=== PATIENT | male | born 1960 | race Caucasian/White ===

== ENCOUNTER 2017-10-11 14:40 | Inpatient (IN) ==
--- NOTE | 2017-10-11 14:55 | Emergency Department Note ---
Disposition Clinical Impression: GUTIERREZ (acute kidney injury) Diabetes Qualifiers: Diabetes mellitus type: type 2 Diabetes mellitus prison insulin use: without terminal operations manager use Diabetes mellitus complication status: with kidney complications Diabetes mellitus complication detail: with nephropathy Qualified Code(s): E11.21 - Type 2 diabetes mellitus with diabetic nephropathy Disposition: Admitted As Inpatient Condition: Fair Referrals: NONE,PCP [Non-Partnered Physician] - Forms: ED Satisfaction Letter General Adult HPI - General Chief complaint: ED Recheck/Abnormal Lab/Rx Stated complaint: "sent by pcp for kidney failure" Time Seen by Provider: 10/11/17 14:45 Source: patient Limitations: no limitations Nursing Notes Reviewed: Yes Vital Signs Reviewed: Yes - History of Present Illness HPI Narrative: Chief complaint is increased kidney function. History this is a 57-year-old gentleman has a history of diabetes. He saw his primary care physician on Saturday for routine blood work to check her sugars and he knows that his kidney function was increased. They repeated that blood work today and it was still increase so they time to come to the ER for a possible admission. He said he has not done been feeling as good as he is he feels that he has no chest pain or shortness of breath no nausea or vomiting savings is urinating like he usually does. He is on lisinopril; he denies taking any NSAIDs. he also takes insulin but no other medications he has never had any kidney issues in the past except for kidney stones. Pain Scale: 2 - Related Data Home Medications Medication Instructions Recorded Confirmed Cyclobenzaprine HCl 10 mg PO TID PRN 01/01/16 10/11/17 Lisinopril [Zestril] 40 mg PO DAILY 01/01/16 10/11/17 Aspirin [Lo-Dose Aspirin EC] 81 mg PO DAILY 10/11/17 10/11/17 Gabapentin [Neurontin] 300 mg PO TID 10/11/17 10/11/17 Insulin Glargine,Hum.rec.anlog 25 unit SQ QPM 10/11/17 10/11/17 [Basaglar Kwikpen U-100] Metformin HCl 1,000 mg PO BID 10/11/17 10/11/17 Allergies Allergy/AdvReac Type Severity Reaction Status Date / Time No Known Allergies Allergy Verified 01/01/16 17:27 Review of Systems: Positive for feeling tired other review systems are negative All systems ED: reviewed and negative except as stated. Past Medical History - Past Medical History Medical history: Reports: cancer, diabetes, hyperlipidemia, hypertension, kidney stones, renal disease Surgical history: Reports: orthopedic, other Psychiatric history: Reports: no psych history - Social History Smoking Status: Never smoker Smokeless Tobacco Status: No Alcohol use: Reports: none Drug use: Reports: none Physical Exam Temperature is 98.2, pulse is 96, respirations 18, BP 147/87 pulse oximeter is 95%, he was 134.6 kg. He is alert cooperative in no acute distress HEENT is normocephalic PERRL airways midline no drooling or stridor beaks membranes are moist no scleral icterus Cardiovascular is regular rate and rhythm without rubs or JVD lungs are clear to auscultation bilaterally with good aeration Abdomen soft nonsurgical good bowel sounds no masses, no CVA tenderness Extremities are present 4 good distal pulses Refill is brisk no pitting edema no calf tenderness Dermatologic skin is warm and dry no rash petechiae or jaundice neurologic: Alert to person place and time GCS is 15 moves all extremities no focal deficit. - General Limitations: no limitations General appearance: alert, in no apparent distress, appears intoxicated Course Vital Signs Temperature 98.2 F 10/11/17 14:42 Pulse Rate 98 10/11/17 14:42 Respiratory Rate 18 10/11/17 14:42 Blood Pressure 147/87 10/11/17 14:42 O2 Sat by Pulse Oximetry 95 10/11/17 14:42 Temperature 98.2 F 10/11/17 14:47 Pulse Rate 84 10/11/17 15:31 Respiratory Rate 18 10/11/17 15:31 Blood Pressure 135/87 10/11/17 15:31 O2 Sat by Pulse Oximetry 94 10/11/17 14:54 Oxygen Delivery Oxygen Delivery Room Air Medical Decision Making - [facility] Narrative Medical decision making narrative: 1300: Labs reviewed from today and his creatinine has increased. We will bring him into the hospital speak with the hospitalist. I spoke with Dr. Gerber who is on for nephrology consults. He has to get a ultrasound of the kidneys and consult him. Patient's in agreement with this plan. Started him on IV fluids here. 1305 hrs.: It appears patient did not have a CBC with his labs on Saturday. Waiting on EKG at this time. He is in agreement with this plan. 1312 hrs. patient had an EKG performed shows a sinus rhythm, rate is 87, QRS is 104, QTC is 363, does have a little bit of left axis deviation. This EKG he had 2 years ago and shows no changes. Set for rate. 1618 hrs.: Patient's CBC is unremarkable. His potassium is elevated 6.4 but is not having symptoms or effects from that this time. Spoke with the hospitalist , he is in agreement with admission plan. water filtration technician is taking him for bilateral kidney ultrasounds requested by nephrology and nephrology will consult. Impression is acute kidney injury uncertain etiology and diabetes. Agreement with the admission - Lab Data Result diagrams: 10/11/17 15:40 Lab Results 10/11/17 Range/Units 15:40 WBC 11.8 H (4.3-11.1) K/mcL RBC 4.23 (4.19-5.50) M/mcL Hgb 12.2 L (12.9-16.9) g/dL Hct 36.0 L (37.5-50.1) % MCV 85.1 (83.0-100.0) fL MCH 28.8 (28.0-33.3) pg MCHC 33.9 (31.6-35.5) g/dL RDW 13.2 (11.5-14.5) % Plt Count 367 (140-400) K/mcL MPV 9.5 (9.4-12.4) fL Immature Gran % 0.7 (0-4) % Seg Neutrophils % 62.3 % Lymphocytes % 25.8 % Monocytes % 8.4 % Eosinophils % 2.4 % Basophils % 0.4 % Neutrophils # 7.4 (1.6-8.9) K/mcL Lymphocytes # 3.1 (0.6-4.6) K/mcL Monocytes # 1.0 (0.0-1.3) K/mcL Eosinophils # 0.3 (0.0-0.6) K/mcL Basophils # 0.1 (0.0-0.2) K/mcL
[2017-10-11] MEDS: 0.9 % Sodium Chloride 1,000 ML IVC SCH ×2 (14:59→18:30)
[2017-10-11 15:53] LABS: Basophils # 0.1 K/mcL (0.0-0.2); Basophils % 0.4 %; Eosinophils # 0.3 K/mcL (0.0-0.6); Eosinophils % 2.4 %; Hemoglobin 12.2 g/dL (12.9-16.9); Immature Granulocytes % 0.7 % (0-4); Lymphocytes # 3.1 K/mcL (0.6-4.6); Lymphocytes % 25.8 %; Mean Corpuscular HGB Conc 33.9 g/dL (31.6-35.5); Mean Corpuscular Hemoglobin 28.8 pg (28.0-33.3); Mean Corpuscular Volume 85.1 fL (83.0-100.0); Mean Platelet Volume 9.5 fL (9.4-12.4); Monocytes % 8.4 %; Neutrophils # 7.4 K/mcL (1.6-8.9); Platelet Count 367 K/mcL (140-400); Red Blood Count 4.23 M/mcL (4.19-5.50); Red Cell Distribution Width 13.2 % (11.5-14.5); Segmented Neutrophils % 62.3 %
[2017-10-11] MEDS ORDERED: *HR* Dextrose 50 % in Water (Syg) 50 ML SYRINGE IVP ONE (17:10)
[2017-10-11] MEDS ORDERED: Calcium Chloride 1,000 MG in 0.9 % Sodium Chloride 100 ML IVPB ONE (17:10)
[2017-10-11] MEDS ORDERED: Insulin Human Regular 10 UNIT in 0.9 % Sodium Chloride 10 ML IV ONE (17:10)
[2017-10-11] MEDS ORDERED: Naloxone 0.4 MG/ML INJ IVP PRN (17:11)
[2017-10-11] MEDS ORDERED: D5% in Water 1,000 ML IVC PRN (17:14)
[2017-10-11] MEDS ORDERED: *HR* Dextrose 50 % in Water (Syg) 50 ML SYRINGE IVP PRN (17:14)
[2017-10-11] MEDS ORDERED: Dextrose Gel 15 GM/37.5 ML TUBE PO PRN ×2 (17:14)
--- NOTE | 2017-10-11 17:23 | Internal Med History&Physical ---
Date of Encounter: 10/11/17 Time of Encounter: 17:20 Internal Medicine - H&P: HPI Chief complaint: acute hyperkalemia and GUTIERREZ History of present illness: Mr. 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 He denies being symptomatic or feeling unwell. Denies overt weight gain or any new medicines. The only changes in his medicine was to increase his Lantus from 18-25 units at night. He denies a history of kidney disease. Has a remote history of kidney stone approximately 10 years ago. EKG personally reviewed with rate of 87, normal sinus rhythm HISTORY: ORDERING SYSTEM PROVIDED HISTORY: GUTIERREZ request from Nephro FINDINGS: Kidneys: The right kidney measures 12.13 x 6.67 x 6.11 cm. The left kidney measures 13.31 x 5.19 x 7.72 cm. Both kidneys demonstrate mild hydronephrosis an papillary calcifications consistent with multiple nephroliths, largest of 4 mm. A superior pole cyst left kidney 2.0 x 1.86 x 2.22 cm is noted. No cortical thinning is noted. US/US retroperitoneal limited IMPRESSION: Mild bilateral hydronephrosis and nonobstructing nephroliths. Superior pole cyst left kidney. Past Med Surg Social Fam HX - Past Medical History Medical history: cancer, diabetes, hyperlipidemia, hypertension, kidney stones, renal disease Additional medical history: skin CA Psychiatric history: no psych history - Past Surgical History Surgical History: orthopedic, other Additional surgical history: BACK SURGERY, Skin CA removed 09/30/17 - Social History Smoking Status: Never smoker Smokeless Tobacco Status: No Alcohol use: none Drug use: none - Family History Father Adopted: No Hx Family Cardiac Disorders: Yes (Myocardial infarction in his 50s) Hx Family Neurologic Disorders: Yes (Cerebrovascular accident) Mother Adopted: No Living Status: Still Living Hx Family Cardiac Disorders: Yes (CAD/STENTS) Hx Family Respiratory Disorders: Yes (GRANDFATHER) Hx Family Cancer: Yes Hx Family GI Disorders: No Hx Family Endocrine Disorder: Yes Hx Family Neurologic Disorders: Yes (Cerebrovascular accident) Internal Medicine - H&P: Meds Cyclobenzaprine HCl 10 mg PO TID PRN 01/01/16 [History] Lisinopril [Zestril] 40 mg PO DAILY 01/01/16 [History] Aspirin [Lo-Dose Aspirin EC] 81 mg PO DAILY 10/11/17 [History] Gabapentin [Neurontin] 300 mg PO TID 10/11/17 [History] Insulin Glargine,Hum.rec.anlog [Basaglar Kwikpen U-100] 25 unit SQ QPM 10/11/17 [History] Metformin HCl 1,000 mg PO BID 10/11/17 [History] 3 Allergy/AdvReac Type Severity Reaction Status Date / Time No Known Allergies Allergy Verified 01/01/16 17:27 All Systems PM: A 10-system review of systems was performed and is negative for pertinent findings except as documented above in the HPI. Review of systems: ROS 14 point review of systems reviewed as best as possible given presentation. Pertinent positive or negative as per HPI or otherwise reviewed as negative - Constitutional Vitals: Temp Pulse Resp BP Pulse Ox 98.2 F 84 18 135/87 94 10/11/17 14:47 10/11/17 15:31 10/11/17 15:31 10/11/17 15:31 10/11/17 14:54 Exam: General - AAO x 3 Psych - Appropriate affect/speech. No agitation Eyes - SARAH. Eye lids intact. No scleral icterus Neuro - No gross peripheral or central neuro deficits on inspection Heart - Sinus. RRR. S1 and S2 present. No added HS/murmurs appreciated. No elevated JVD appreciated. Lung - Adequate air entry b/l, No crackles/wheezes appreciated GI - Soft, non-tender. No hepatosplenomegaly/ascites. BS+ - No CVA/suprapubic tenderness or palpable bladder distension Skin - Intact. No rash/petechiae/ecchymosis. Trace b/l LE edema Internal Med - H&P Results - Labs CBC & Chem 7: 10/11/17 15:40 - Assessment and plan (1) Hyperkalemia Current Visit: Yes Status: Acute Assessment and plan: hyperK protocol recheck K later at 2000 hrs hold ACEI, metformin home med tele (2) GUTIERREZ (acute kidney injury) Current Visit: Yes Status: Acute Assessment and plan: trial of IVF, trend Cr Renal consult - Dr Montes informed by the ED 24 hour urine - if unable to collect in bottle, will need jack placement - communication order placed urine studies pending renal US (3) Diabetes Current Visit: Yes Status: Chronic Assessment and plan: continue lantus add ISS Qualifiers: Diabetes mellitus type: type 2 Diabetes mellitus senior living insulin use: without senior living use Diabetes mellitus complication status: with kidney complications Diabetes mellitus complication detail: with nephropathy Qualified Code(s): E11.21 - Type 2 diabetes mellitus with diabetic nephropathy (4) Hyperlipidemia Current Visit: No Status: Acute Assessment and plan: continue statin Qualifiers: Hyperlipidemia type: other hyperlipidemia Qualified Code(s): E78.4 - Other hyperlipidemia (5) Hypertension Current Visit: No Status: Chronic Assessment and plan: hold ACEI Qualifiers: Hypertension type: unspecified secondary hypertension Qualified Code(s): I15.9 - Secondary hypertension, unspecified; I15 - Secondary hypertension - Time Spent With Patient Total time spent is greater than 50% in coordination of care (as documented) at patient's floor/unit and/or counseling patient:
[2017-10-11] MEDS: *HR* Heparin 5,000 UNIT/ML VIAL SQ SCH (18:34)
[2017-10-11 20:23] LABS: Calcium 10.8 mg/dL (8.6-10.3); Potassium 5.3 mEq/L (3.5-5.1)
[2017-10-11 20:56] LABS: Bilirubin,Urine Negative (Negative); Blood,Urine Trace (Negative); Clarity,Urine Clear (Clear); Color,Urine Yellow (Yellow); Glucose,Urine (UA) Normal (Normal); Ketones,Urine Negative (Negative); Leukocyte Esterase,Urine Negative (Negative); Nitrite,Urine Negative (Negative); Protein,Urine Negative (Neg-Trace); Specific Gravity,Urine 1.016 (1.010-1.025); Urobilinogen,Urine Normal (Normal)
[2017-10-11 20:57] LABS: Bacteria,Urine None Seen per hpf (None-Few); Hyaline Casts,Urine None Seen per lpf (None-Few); Squamous Epithelial Cell,Urine None Seen per lpf (None-Few); WBC,Urine 0-3 per hpf (0-3)
[2017-10-11 21:23] LABS: Protein/Creatinine Ratio,Urine 0.17 mg/mg (0.00-0.20); Sodium, Urine 102.6 mEq/L
[2017-10-11] MEDS: Insulin DETEMIR 100 UNIT/ML X5UNITS SQ SCH (22:06)
[2017-10-11] MEDS: Gabapentin 300 MG CAPSULE PO SCH (22:06)
[2017-10-11] MEDS: Insulin LISPRO 300 UNITS/3 ML VIAL SQ SCH (22:09)
[2017-10-12] MEDS: *HR* Heparin 5,000 UNIT/ML VIAL SQ SCH ×2 (06:36→17:03)
[2017-10-12 07:21] LABS: Calcium 9.8 mg/dL (8.6-10.3); Potassium 5.7 mEq/L (3.5-5.1)
[2017-10-12] MEDS: Gabapentin 300 MG CAPSULE PO SCH ×3 (08:29→20:28)
[2017-10-12] MEDS: Aspirin Enteric Coated 81 MG Tablet PO SCH (08:29)
[2017-10-12] MEDS: Insulin LISPRO 300 UNITS/3 ML VIAL SQ SCH ×4 (08:29→20:31)
[2017-10-12] MEDS: 0.9 % Sodium Chloride 1,000 ML IVC SCH ×3 (08:39→20:54)
--- NOTE | 2017-10-12 09:44 | Nephrology Consult Note ---
Date of Encounter: 10/12/17 Time of Encounter: 09:25 Assessment and Plan (1) GUTIERREZ (acute kidney injury) Current Visit: Yes Status: Acute GUTIERREZ most likely in setting of decreased oral intake with unclear etiology. May be related to recent stone event a month ago in setting of bilateral hydronephrosis on Renal US that may be resolving though creatinine should have been improving. Hyperkalemia related to GUTIERREZ and Lisinopril. Continue IV fluids. Will start renal workup. Avoid nephrotoxins. Accurate I&O's. Will continue to monitor. History of Present Illness - Reason for Consult Acute Kidney Injury - History of Present Illness Mr. Cavanaugh is a 57 year old male who presented to ER from PCP for abnormal labs of elevated creatinine. Other PMH-cancer, diabetes, hyperlipidemia, hypertension, kidney stones, orthopedic. Mr. Cavanaugh states has not been feeling well in general for past two weeks following an excision of malignant lesion right ear with skin graft from right chest. He attributed his not feeling well to this. He states lab work done was for regular following of diabetes and it was noted "kidney numbers" elevated, labs were repeated and were worse and sent to ER. Initial creat 2.79, repeat 2.85. ER creat 2.69 and 2.53 today following IV fluids. Initial K 6.4, on Lisinopril which was stopped, given Kaexylate, repeat K 5.3. Today K 5.7 and Kaexylate ordered. Urine trace blood, negative protein, no leuks. Prior labs indicate renal fct normal in 2016 up to 2016 with no further labs between until current. Mr. Cavanaugh admits nausea for two weeks, no emesis. Decreased appetite and fluid intake. He denies diarrhea. Denies NSAID use. Diabetes for 20 years under good control. Denies diabetic retinopathy. Hypertension as teen but not started on medication until around age 28 and has been under good control since. He denies proteinuria or hematuria. He admits multiple [facility] renal stone events, last event one month ago and passed 2-3 stones. He states he no longer seeks medical attention for stones because he knows what it is. Stone composition uric acid. States was on medication, but cannot remember what and has not taken in awhile. He denies hx of UTI's. He states empties bladder without difficulty and voids 1-2 times during night. He denies swelling, shortness of breath or chest pain. Renal US demonstrates bilateral mild hydronephrosis, bilateral nonobstructing nephroliths. Hydronephrosis may be related to recent stone event of one month ago as mentioned above. 0.9 NS at 125cc/hr. No documented urine output, though patient states voiding well. Past Med Surg Social Fam HX - Past Medical History Medical history: cancer, diabetes, hyperlipidemia, hypertension, kidney stones, renal disease Additional medical history: skin CA Psychiatric history: no psych history - Past Surgical History Surgical History: orthopedic, other Additional surgical history: BACK SURGERY, Skin CA removed 09/30/17 - Social History Smoking Status: Never smoker Smokeless Tobacco Status: No Alcohol use: none Drug use: none - Family History Father Adopted: No Hx Family Cardiac Disorders: Yes (Myocardial infarction in his 50s) Hx Family Neurologic Disorders: Yes (Cerebrovascular accident) Mother Adopted: No Living Status: Still Living Hx Family Cardiac Disorders: Yes (CAD/STENTS) Hx Family Respiratory Disorders: Yes (GRANDFATHER) Hx Family Cancer: Yes Hx Family GI Disorders: No Hx Family Endocrine Disorder: Yes Hx Family Neurologic Disorders: Yes (Cerebrovascular accident) Medications and Allergies Cyclobenzaprine HCl 10 mg PO TID PRN 01/01/16 [History] Lisinopril [Zestril] 40 mg PO DAILY 01/01/16 [History] Aspirin [Lo-Dose Aspirin EC] 81 mg PO DAILY 10/11/17 [History] Gabapentin [Neurontin] 300 mg PO TID 10/11/17 [History] Insulin Glargine,Hum.rec.anlog [Basaglar Kwikpen U-100] 25 unit SQ QPM 10/11/17 [History] Metformin HCl 1,000 mg PO BID 10/11/17 [History] 3 Allergy/AdvReac Type Severity Reaction Status Date / Time No Known Allergies Allergy Verified 01/01/16 17:27 Review of Systems All Systems: reviewed and no additional remarkable complaints except as stated Exam - Vital Signs Vital signs: Initial Vital Signs Temp Pulse Resp BP Pulse Ox 98.2 F 98 18 147/87 95 10/11/17 14:42 10/11/17 14:42 10/11/17 14:42 10/11/17 14:42 10/11/17 14:42 Vital Signs - Last 8 Hours Temp Pulse Resp BP Pulse Ox 10/12/17 08:41 94 10/12/17 07:16 97.8 F 74 17 121/76 94 10/12/17 03:32 98.1 F 79 17 111/61 95 Intake and Output 10/11/17 10/12/17 10/12/17 23:59 07:59 15:59 Intake Total 1000 / 1000 480 / 480 Output Total 0 / 0 Balance 1000 / 1000 480 / 480 Intake: IV Fluids 1000 / 1000 0.9 % Sodium Chloride 1,000 ML 1000 / 1000 @ 125 mls/hr IVC .Q8H [facility] Rx#: [id number] Oral 480 / 480 Output: Urine 0 / 0 Other: Meal Breakfast Percent of Meal Consumed 100% Weight 294.835 kg 135.2 kg Blood Glucose* 213 160 Patient Weight 10/12/17 23:59 Weight 135.2 kg - General Appearance General appearance: well-developed, well-nourished, appears started age, obese EENT: mucous membranes moist Neck: no JVD Respiratory: clear Cardiology: no edema, regular rate, regular rhythm Gastrointestinal: normoactive bowel sounds, no tenderness Integumentary: warm and dry Neurologic: alert and oriented x3 Results - Lab Results 10/11/17 15:40 10/12/17 06:21 Most recent lab results Calcium 9.8 mg/dL (8.6-10.3) 10/12/17 06:21 Urine Creatinine 72 mg/dL 10/11/17 20:14 Urine Sodium 102.6 mEq/L 10/11/17 20:14 Urine Total Protein 12 mg/dL (1-14) 10/11/17 20:14 Consult Discharge Plan - Plan Referrals: Nilam Del Cid, CASE PLANNER [Primary Care Provider] - (web request sent on 10/12/17)
--- NOTE | 2017-10-12 10:41 | Urology - Consult Note ---
Date of Encounter: 10/12/17 Time of Encounter: 10:39 - Assessment and Plan (1) Hydronephrosis Current Visit: Yes Status: Acute Assessment and plan: 57-year-old male with possible hydronephrosis. He seems to be urinating well. He denies concern for urinary retention. A CT scans pending. We will see if he has evidence of BPH or obstructing ureteral stones. I will return once the results have come back. Qualifiers: Hydronephrosis type: unspecified Qualified Code(s): N13.30 - Unspecified hydronephrosis (2) Nephrolithiasis Current Visit: Yes Status: Acute Assessment and plan: We discussed his nephrolithiasis. Should he have concern for an obstructing ureteral stone, then we may need to proceed with stent placement or possible ureteroscopic stone extraction. Once the CT returns to provide him more information regarding the plan. Urology CN:DARREN Consult date: 10/12/17 Reason for consult Urology: Other (Nephrolithiasis) Requesting physician: Maciel Montes History of present illness: 57-year-old man was admitted for worsening renal function. He has a history of nephrolithiasis and reports that he has had uric acid stones. He passed a stone fragments 1-2 times per year. He denies any recent flank pain. He says he is voiding well. He had a renal ultrasound which showed bilateral hydronephrosis. A CT scan is pending. He had a CT of his chest in December 2015. A small portion of the upper pole the left kidney was obtained. There was evidence of nephrolithiasis there. Past Med Surg Social Fam HX - Past Medical History Medical history: cancer, diabetes, hyperlipidemia, hypertension, kidney stones, renal disease Additional medical history: skin CA Psychiatric history: no psych history - Past Surgical History Surgical History: orthopedic, other Additional surgical history: BACK SURGERY, Skin CA removed 09/30/17 - Social History Smoking Status: Never smoker Smokeless Tobacco Status: No Alcohol use: none Drug use: none - Family History Father Adopted: No Hx Family Cardiac Disorders: Yes (Myocardial infarction in his 50s) Hx Family Neurologic Disorders: Yes (Cerebrovascular accident) Mother Adopted: No Living Status: Still Living Hx Family Cardiac Disorders: Yes (CAD/STENTS) Hx Family Respiratory Disorders: Yes (GRANDFATHER) Hx Family Cancer: Yes Hx Family GI Disorders: No Hx Family Endocrine Disorder: Yes Hx Family Neurologic Disorders: Yes (Cerebrovascular accident) Medications and Allergies Cyclobenzaprine HCl 10 mg PO TID PRN 01/01/16 [History] Lisinopril [Zestril] 40 mg PO DAILY 01/01/16 [History] Aspirin [Lo-Dose Aspirin EC] 81 mg PO DAILY 10/11/17 [History] Gabapentin [Neurontin] 300 mg PO TID 10/11/17 [History] Insulin Glargine,Hum.rec.anlog [Basaglar Kwikpen U-100] 25 unit SQ QPM 10/11/17 [History] Metformin HCl 1,000 mg PO BID 10/11/17 [History] 3 Allergy/AdvReac Type Severity Reaction Status Date / Time No Known Allergies Allergy Verified 01/01/16 17:27 Review of Systems - Constitutional no chills, no fever(s) - EENT Nose, mouth and throat: no dizziness - Cardiovascular no chest pain - Respiratory no dyspnea - Gastrointestinal no nausea, no vomiting - Genitourinary no flank pain, no hematuria - Musculoskeletal no back pain - Integumentary no erythema, no rash - Neurological no weakness - Psychiatric no suicidal ideation - Hematologic/Lymphatic no easy bleeding - Allergic/Immunologic no wheezing Exam Initial Vital Signs Temp Pulse Resp BP Pulse Ox 98.2 F 98 18 147/87 95 10/11/17 14:42 10/11/17 14:42 10/11/17 14:42 10/11/17 14:42 10/11/17 14:42 - General physical appearance Present: well developed, well nourished, no distress - Eyes Absent: icteric - ENT Present: normal nares - Neck Present: trachea midline - Respiratory Present: normal respiratory effort - Cardiovascular Cardiovascular exam IM: RRR - Abdomen Abdomen: Present: soft - Integumentary Present: no rash - Neurologic Present: normal coordination - Musculoskeletal Present: normal gait Urology Results - Labs 10/11/17 15:40 10/12/17 06:21 Abnormal lab results WBC 11.8 K/mcL (4.3-11.1) H 10/11/17 15:40 Hgb 12.2 g/dL (12.9-16.9) L 10/11/17 15:40 Hct 36.0 % (37.5-50.1) L 10/11/17 15:40 Potassium 5.7 mEq/L (3.5-5.1) H 10/12/17 06:21 Carbon Dioxide 19 mEq/L (23-29) L 10/12/17 06:21 BUN 53 mg/dL (6-20) H 10/12/17 06:21 Creatinine 2.53 mg/dL (0.70-1.30) H 10/12/17 06:21 Est GFR ( Amer) 32 (> 60) L 10/12/17 06:21 Est GFR (Non-Af Amer) 26 (> 60) L 10/12/17 06:21 Glucose 154 mg/dL (70-105) H 10/12/17 06:21 Calculated Osmolality 301 (280-300) H 10/12/17 06:21 Urine Blood Trace (Negative) H 10/11/17 20:14 Urine Microscopic RBC 3-5 per hpf (0-3) H 10/11/17 20:14 Diabetes panel 10/11/17 10/12/17 Range/Units 19:48 06:21 Sodium 137 137 (136-145) mEq/L Potassium 5.3 H 5.7 H (3.5-5.1) mEq/L Chloride 105 107 (98-107) mEq/L Carbon Dioxide 19 L 19 L (23-29) mEq/L BUN 58 H 53 H (6-20) mg/dL Creatinine 2.69 H 2.53 H (0.70-1.30) mg/dL Glucose 192 H 154 H (70-105) mg/dL Calcium 10.8 H 9.8 (8.6-10.3) mg/dL Calcium panel 10/11/17 10/12/17 Range/Units 19:48 06:21 Calcium 10.8 H 9.8 (8.6-10.3) mg/dL Pituitary panel 10/11/17 10/12/17 Range/Units 19:48 06:21 Sodium 137 137 (136-145) mEq/L Potassium 5.3 H 5.7 H (3.5-5.1) mEq/L Chloride 105 107 (98-107) mEq/L Carbon Dioxide 19 L 19 L (23-29) mEq/L BUN 58 H 53 H (6-20) mg/dL Creatinine 2.69 H 2.53 H (0.70-1.30) mg/dL Glucose 192 H 154 H (70-105) mg/dL Calcium 10.8 H 9.8 (8.6-10.3) mg/dL Adrenal panel 10/11/17 10/12/17 Range/Units 19:48 06:21 Sodium 137 137 (136-145) mEq/L Potassium 5.3 H 5.7 H (3.5-5.1) mEq/L Chloride 105 107 (98-107) mEq/L Carbon Dioxide 19 L 19 L (23-29) mEq/L BUN 58 H 53 H (6-20) mg/dL Creatinine 2.69 H 2.53 H (0.70-1.30) mg/dL Glucose 192 H 154 H (70-105) mg/dL Calcium 10.8 H 9.8 (8.6-10.3) mg/dL All other labs normal. - Imaging US - abdomen: report reviewed, image reviewed US - pelvic: report reviewed, image reviewed Consult Discharge Plan - Plan Referrals: Nilam Del Cid, WIRE LOOP MACHINE OPERATOR [Primary Care Provider] - (web request sent on 10/12/17)
[2017-10-12 11:49] LABS: Phosphorous 4.6 mg/dL (2.7-4.5); Uric Acid 7.5 mg/dL (2.3-7.6)
[2017-10-12 13:22] LABS: Magnesium 1.6 mg/dL (1.6-2.6)
--- NOTE | 2017-10-12 16:10 | Internal Med Progress Note ---
Date of Encounter: 10/12/17 Time of Encounter: 09:10 - Assessment and plan (1) Hyperkalemia Current Visit: Yes Status: Acute Assessment and plan: Likely due to MICHAEL inhibitor and renal failure. Will give 1 dose of oral Kayexalate. Continue telemetry monitoring. Lisinopril has been on hold. (2) GUTIERREZ (acute kidney injury) Current Visit: Yes Status: Acute Assessment and plan: Likely prerenal along with use of MICHAEL inhibitor as outpatient, history of kidney stones. Nephrology and neurology consults appreciated. Continue IV hydration, serum creatinine slightly improved to 2.53 today. Renal ultrasound shows mild bilateral hydronephrosis. Monitor urine output closely, avoid new nephrotoxic agents. Lisinopril and metformin have been on hold. Urology consulted, possible recent passing of stones and resolving hydronephrosis. CT abdomen pending. (3) Diabetes Current Visit: Yes Status: Chronic Assessment and plan: Blood sugars noted to be well controlled. Continue Accu-Chek blood glucose monitoring with sliding scale insulin as needed. Hold metformin for now. Diabetic diet. Qualifiers: Diabetes mellitus type: type 2 Diabetes mellitus prison insulin use: without termite renewal inspector use Diabetes mellitus complication status: with kidney complications Diabetes mellitus complication detail: with nephropathy Qualified Code(s): E11.21 - Type 2 diabetes mellitus with diabetic nephropathy (4) Hypertension Current Visit: Yes Status: Chronic Assessment and plan: Blood pressure well controlled. Hold lisinopril. Continue other medications. Qualifiers: Hypertension type: essential hypertension Qualified Code(s): I10 - Essential (primary) hypertension (5) Hyperlipidemia Current Visit: Yes Status: Chronic Qualifiers: Hyperlipidemia type: unspecified Qualified Code(s): E78.5 - Hyperlipidemia , unspecified - Time Spent With Patient Total time spent is greater than 50% in coordination of care (as documented) at patient's floor/unit and/or counseling patient: - Subjective Interval history: Reports feeling well. No chest pain, shortness of breath, nausea, vomiting, weight loss. Reports mild right flank pain, does have history of kidney stones , passes stones frequently. - Constitutional Vitals: Temp Pulse Resp BP Pulse Ox 98.6 F 81 18 119/74 93 10/12/17 15:20 10/12/17 15:20 10/12/17 15:20 10/12/17 15:20 10/12/17 15:20 General appearance: Present: A&O X 3, morbidly obese, answers questions appropriately - Respiratory Respiratory exam: Present: CTAB. Absent: accessory muscle use, rales, rhonchi, wheezes - Cardiovascular Cardiovascular exam: Present: RRR, +S1, +S2. Absent: diastolic murmur, gallop, rubs, systolic murmur - GI/Abdominal GI/Abdominal exam: Present: normal bowel sounds, soft (obese), no peritoneal signs. Absent: distended, tenderness - Extremities Exam Extremities exam: Present: full ROM, warm, radial pulses palpable and symmetrical. Absent: calf tenderness, cyanotic, pedal edema - Neurological Exam Neurological exam: Present: CN II-XII intact, oriented X3, no focal deficits. Absent: pronater drift, facial droop, speech deficit Internal Medicine: Result - Labs CBC & Chem 7: 10/11/17 15:40 10/12/17 06:21 Labs: BMP 10/11/17 10/12/17 19:48 06:21 Sodium 137 137 Potassium 5.3 H 5.7 H Chloride 105 107 Carbon Dioxide 19 L 19 L BUN 58 H 53 H Creatinine 2.69 H 2.53 H Glucose 192 H 154 H Calcium 10.8 H 9.8 Urine 10/11/17 Range/Units 20:14 Urine Color Yellow (Yellow) Urine Clarity Clear (Clear) Urine pH 6.0 (5.0-8.0) pH Units Ur Specific [place] 1.016 (1.010-1.025) Urine Protein Negative (Neg-Trace) mg/dL Urine Glucose (UA) Normal (Normal) mg/dL - Impressions Impressions Abdomen/Pelvis CT 10/12/17 09:13 IMPRESSION: Left hydronephrosis with obstructing 2.5 cm left ureteropelvic junction stone. Bilateral nephrolithiasis. D/ / Maine Cat Cha, MD / Maine Cat Cha, MD Interpreting Provider: Maine Cat Cha, MD Consult Discharge Plan - Plan Referrals: Nilam Del Cid, BIAS CUTTING MACHINE OPERATOR [Primary Care Provider] - (web request sent on 10/12/17)
[2017-10-12] MEDS: Insulin DETEMIR 100 UNIT/ML X5UNITS SQ SCH (17:04)
[2017-10-13] MEDS: *HR* Heparin 5,000 UNIT/ML VIAL SQ SCH ×2 (05:32→16:42)
[2017-10-13] MEDS: 0.9 % Sodium Chloride 1,000 ML IVC SCH ×4 (05:33→23:44)
[2017-10-13 06:37] LABS: Magnesium 1.7 mg/dL (1.6-2.6); Potassium 4.9 mEq/L (3.5-5.1)
--- NOTE | 2017-10-13 07:22 | Anesthesia Evaluation PreOp ---
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 History: Denies Any Significant HX Other Medical History: Renal ([place] renal stones, obstructing left UPJ stone, GUTIERREZ) , Diabetes Type II Anesthesia History: No Prior Anesthetic Complications, Past Anesthesia Alcohol Use: none Drug use: none Medications and Allergies Cyclobenzaprine HCl 10 mg PO TID PRN 01/01/16 [History] Lisinopril [Zestril] 40 mg PO DAILY 01/01/16 [History] Aspirin [Lo-Dose Aspirin EC] 81 mg PO DAILY 10/11/17 [History] Gabapentin [Neurontin] 300 mg PO TID 10/11/17 [History] Insulin Glargine,Hum.rec.anlog [Basaglar Kwikpen U-100] 25 unit SQ QPM 10/11/17 [History] Metformin HCl 1,000 mg PO BID 10/11/17 [History] 3 Allergy/AdvReac Type Severity Reaction Status Date / Time No Known Allergies Allergy Verified 01/01/16 17:27 - Meds/Allergy Pre-op Review Medications Reviewed: Yes Allergies Reviewed: Yes Anesthesia Results - Labs 10/11/17 15:40 10/13/17 05:59 Laboratory Tests 10/11/17 10/12/17 10/13/17 19:48 06:21 05:59 Potassium 5.3 H 5.7 H 4.9 Creatinine 2.69 H 2.53 H 2.71 H Laboratory Tests 10/12/17 10/13/17 11:05 05:59 Calcium 9.0 Phosphorus 4.6 H Magnesium 1.7 - Imaging Additional studies: TTE 2016: Normal LV chamber size, wall thickness, and systolic function. LVEF 60%. Normal left ventricular diastolic function. Normal right ventricular structure and function. No significant valvular dysfunction. Anesthesia Exam 2 Weight 136.985 kg Height 1.83 m BMI 41 Vital Signs/O2 Sat/Glucose, Most Recent Temp Pulse Resp BP Pulse Ox 98.3 F 72 16 93/54 96 10/13/17 04:35 10/13/17 04:35 10/13/17 04:35 10/13/17 04:35 10/13/17 04:35 Blood Glucose* 274 NPO (# of Hours): 8 - HEENT Pupil (Motor): Pupils equal Mallampati: I Teeth: Normal Oral Opening: Greater than 3 - Cardiac Rhythm: Regular - Pulmonary Breath Sounds: bilateral Clear Anesthesia Assess/Plan ASA Score: 2 Modified Marjorie Scale for Level of Consciousness: Cooperative, oriented, and tranquil Anesthetic Plan: General Monitoring Plan: Standard Monitors Recovery Plan: PACU
[2017-10-13] MEDS: Aspirin Enteric Coated 81 MG Tablet PO SCH (07:48)
[2017-10-13] MEDS: Gabapentin 300 MG CAPSULE PO SCH ×3 (07:48→20:31)
[2017-10-13] MEDS: Insulin LISPRO 300 UNITS/3 ML VIAL SQ SCH ×3 (07:48→16:40)
--- NOTE | 2017-10-13 07:51 | Urology Progress Note ---
Date of Encounter: 10/13/17 Time of Encounter: 07:49 - Assessment and Plan (1) Hydronephrosis Current Visit: Yes Status: Acute Qualifiers: Hydronephrosis type: unspecified Qualified Code(s): N13.30 - Unspecified hydronephrosis (2) Nephrolithiasis Current Visit: Yes Status: Acute Assessment and plan: 57 year old man with left ureteral stone. Plan for cystoscopy and left ureteral stent placement. Patient aware of the risks of the surgery including, but not limited to bleeding, infection, injury to other structures, need for further procedures, stent irritation, need for open repair, need for nephrostomy tube, and the risk of anesthesia. He is willing to proceed. Progress Note Narrative: Doing well. Pain is controlled. CT showed obstructing left proximal ureteral stone. Objective Initial Vital Signs Temp Pulse Resp BP Pulse Ox 98.2 F 98 18 147/87 95 10/11/17 14:42 10/11/17 14:42 10/11/17 14:42 10/11/17 14:42 10/11/17 14:42 - General physical appearance Present: well developed, well nourished, no distress - Respiratory Present: normal respiratory effort - Abdomen Present: soft - Labs 10/11/17 15:40 10/13/17 05:59 Diabetes panel 10/13/17 Range/Units 05:59 Sodium 137 (136-145) mEq/L Potassium 4.9 (3.5-5.1) mEq/L Chloride 108 H (98-107) mEq/L Carbon Dioxide 22 L (23-29) mEq/L BUN 51 H (6-20) mg/dL Creatinine 2.71 H (0.70-1.30) mg/dL Glucose 163 H (70-105) mg/dL Calcium 9.0 (8.6-10.3) mg/dL Calcium panel 10/12/17 10/13/17 Range/Units 11:05 05:59 Calcium 9.0 (8.6-10.3) mg/dL Phosphorus 4.6 H (2.7-4.5) mg/dL Pituitary panel 10/13/17 Range/Units 05:59 Sodium 137 (136-145) mEq/L Potassium 4.9 (3.5-5.1) mEq/L Chloride 108 H (98-107) mEq/L Carbon Dioxide 22 L (23-29) mEq/L BUN 51 H (6-20) mg/dL Creatinine 2.71 H (0.70-1.30) mg/dL Glucose 163 H (70-105) mg/dL Calcium 9.0 (8.6-10.3) mg/dL Adrenal panel 10/13/17 Range/Units 05:59 Sodium 137 (136-145) mEq/L Potassium 4.9 (3.5-5.1) mEq/L Chloride 108 H (98-107) mEq/L Carbon Dioxide 22 L (23-29) mEq/L BUN 51 H (6-20) mg/dL Creatinine 2.71 H (0.70-1.30) mg/dL Glucose 163 H (70-105) mg/dL Calcium 9.0 (8.6-10.3) mg/dL Consult Discharge Plan - Plan Referrals: Nialm Del Cid, CLOTH MENDER [Primary Care Provider] - (web request sent on 10/12/17)
[2017-10-13] MEDS ORDERED: *HR* Propofol 200 MG/20 ML VIAL IVP ONE (08:36)
[2017-10-13] MEDS ORDERED: *HR* FentaNYL (PF) 100 MCG/2 ML VIAL ONE (08:36)
[2017-10-13] MEDS ORDERED: *HR* Midazolam HCl 2 MG/2 ML VIAL ONE (08:36)
[2017-10-13] MEDS ORDERED: *HR* Succinylcholine 200 MG/10 ML VIAL IVP ONE (08:39)
[2017-10-13] MEDS ORDERED: *HR* Rocuronium Bromide 50 MG/5 ML VIAL ONE (08:39)
[2017-10-13] MEDS ORDERED: Lidocaine -MPF 2% 2 ML VIAL ONE (08:39)
[2017-10-13] MEDS ORDERED: Dexamethasone 4 MG/ML VIAL ONE (08:41)
[2017-10-13] MEDS ORDERED: Ondansetron 4 MG/2 ML VIAL ONE (08:41)
[2017-10-13] MEDS ORDERED: Lidocaine -MPF 4% 5 ML AMPUL ONE (08:43)
[2017-10-13] MEDS ORDERED: CeFAZolin Syr 3,000MG/30 ML 3,000 MG/30 ML SYRINGE IVPB ONE (09:00)
--- NOTE | 2017-10-13 09:00 | Nephrology Progress Note ---
Date of Encounter: 10/13/17 Time of Encounter: 08:50 - Assessment and Plan (1) GUTIERREZ (acute kidney injury) Current Visit: Yes Status: Acute CT abd/pelvis-left ureteral stent/UPJ obstructing stone. Scheduled for ureteral stent this morning. Renal fct somewhat worse 2.71. Documented urine output 3500cc. Continue IV fluids. Will start renal workup. Avoid nephrotoxins. Accurate I&O's. Will continue to monitor. Subjective Interval history: NPO for left ureteral stent/UPJ obstructing stone. Denies pain. Sitting on edge of bed. Objective - Vital Signs Vital signs: Vital Signs Temp Pulse Resp BP Pulse Ox 10/13/17 07:29 98.2 F 77 18 118/72 95 10/13/17 04:35 98.3 F 72 16 93/54 96 10/12/17 23:40 98.2 F 76 16 146/81 94 10/12/17 20:20 99.1 F 90 16 145/74 93 10/12/17 15:20 98.6 F 81 18 119/74 93 10/12/17 11:30 97.3 F L 75 17 132/81 95 Intake and Output 10/12/17 10/13/17 10/13/17 23:59 07:59 15:59 Intake Total 1860 / 1860 1000 / 1000 0 / 0 Output Total 950 / 950 2500 / 2500 300 / 300 Balance 910 / 910 -1500 / -1500 -300 / -300 Intake: IV Fluids 1000 / 1000 1000 / 1000 0.9 % Sodium Chloride 1,000 ML 1000 / 1000 1000 / 1000 @ 125 mls/hr IVC .Q8H [facility] Rx#: [id number] Oral 860 / 860 0 / 0 0 / 0 Output: Urine 950 / 950 2500 / 2500 300 / 300 Other: Meal Dinner NPO Percent of Meal Consumed 100% # Voids 2 Weight 136.985 kg Blood Glucose* 274 173 - General Appearance General appearance: Present: well-developed, well-nourished, appears started age , obese EENT: Present: mucous membranes moist Neck: Present: no JVD Respiratory: Present: clear Cardiology: Present: edema, regular rate, regular rhythm Additional Comments: mild Gastrointestinal: Present: normoactive bowel sounds, no tenderness Integumentary: Present: warm and dry Neurologic: Present: alert and oriented x3 - Lab 10/11/17 15:40 10/13/17 05:59 Most recent lab results Calcium 9.0 mg/dL (8.6-10.3) 10/13/17 05:59 Phosphorus 4.6 mg/dL (2.7-4.5) H 10/12/17 11:05 Magnesium 1.7 mg/dL (1.6-2.6) 10/13/17 05:59 Urine Creatinine 72 mg/dL 10/11/17 20:14 Urine Sodium 102.6 mEq/L 10/11/17 20:14 Urine Total Protein 12 mg/dL (1-14) 10/11/17 20:14 Consult Discharge Plan - Plan Referrals: Nilam Del Cid, FISH ROD MAKER [Primary Care Provider] - (web request sent on 10/12/17)
[2017-10-13] MEDS ORDERED: ceFAZolin sodium 3,000 MG in 0.9 % Sodium Chloride 100 ML IVPB ONE (09:45)
[2017-10-13] MEDS ORDERED: Isovue-300 50 ML VIAL IVP ONE (09:47)
[2017-10-13] MEDS ORDERED: *HR* PHENYLEPHRINE 1,000 MCG/10 ML SYRINGE IVP ONE (10:09)
[2017-10-13] MEDS ORDERED: *HR* Morphine 2 MG/ML SYRINGE IVP PRN ×2 (10:13→11:02)
[2017-10-13] MEDS ORDERED: *HR* Promethazine 25 MG/ML VIAL IVP PRN (10:13)
[2017-10-13] MEDS ORDERED: *HR* OxyCODONE Immed Rel 5 MG TABLET PO PRN ×2 (10:13→11:02)
--- NOTE | 2017-10-13 10:24 | Operative Note ---
Date of procedure: 10/13/17 Pre-op diagnosis: Left ureteral stone Post-op diagnosis: same Procedure: Cystoscopy, left retrograde pyelogram, left ureteral stent placement. Implants: 6-Serbian by 26 cm double-J stent Complications: None Anesthesia: GETA Surgeon: Todd Colón Was there an assistant accounting manager present: No Estimated blood loss (cc): 0 Specimen: none Condition: stable Disposition: PACU Procedure in Detail: Indications: Mr. Cavanaugh is a 57-year-old male who has a history of nephrolithiasis. He had a CT which showed a left proximal ureteral stone. In addition he has a right renal stone. He elected to undergo a cystoscopy and left ureteral stent placement. He was aware of the risks of the procedure including but not limited to bleeding , infection, injury to other structures, need for further procedures, stent irritation, need for nephrostomy tube, need for open repair, risks otherwise unforeseen, and the risk of anesthesia. He is willing to proceed. Procedure in Detail: After informed consent was obtained the patient was brought back to the operating room and placed in supine position. A time out was performed. General anesthesia was administered and an endotracheal tube was placed. He was then placed in the lithotomy position. He was prepped and draped in the usual sterile fashion. Cystoscopy was performed. The anterior urethra was normal. There was no evidence of bladder tumors. The ureteral orifices were in the normal orthotopic position. There was no duplication of the ureteral orifices. An open-ended catheter was placed in the left ureteral orifice and a retrograde pyelogram showed a filling defect in the proximal ureter. The stone then migrated into the renal pelvis. The sensor wire was placed up the left ureter into the kidney under fluoroscopic guidance. The open-ended catheter was removed. A 6 Serbian by 26cm JJ stent was then placed. The dangle strings were removed. The bladder was drained. The patient was then awakened from general anesthesia and brought to recovery room in good condition. All sponge, needle, and instrument counts were correct.
--- NOTE | 2017-10-13 10:57 | Anesthesia Evaluation Post Op ---
Date of Encounter: 10/13/17 Time of Encounter: 10:57 Notes: Patient's vital signs have been reviewed. Patient is stable postoperatively and has adequately recovered from anesthesia. Patient is determined to have stable airway patency and respiratory function including respiratory rate and oxygen saturation. Patient has a stable heart rate, blood pressure and adequate hydration. Patients mental status is acceptable. Patients temperature is appropriate. Pain and nausea are adequately controlled. - Discharge PostOp Status: Transfer Patient to floor
[2017-10-13] MEDS ORDERED: D5% in Water 1,000 ML IVC PRN (11:02)
[2017-10-13] MEDS ORDERED: Naloxone 0.4 MG/ML INJ IVP PRN (11:02)
[2017-10-13] MEDS ORDERED: *HR* Dextrose 50 % in Water (Syg) 50 ML SYRINGE IVP PRN (11:02)
[2017-10-13] MEDS ORDERED: Dextrose Gel 15 GM/37.5 ML TUBE PO PRN ×2 (11:02)
[2017-10-13 12:46] LABS: Total Volume 24 Hour,Urine 3.56 Liters (0.80-1.80)
[2017-10-13 13:13] LABS: Protein/Creatinine Ratio,Urine 0.12 mg/mg (0.00-0.20)
--- NOTE | 2017-10-13 15:56 | Internal Med Progress Note ---
Date of Encounter: 10/13/17 Time of Encounter: 13:15 - Assessment and plan (1) Hyperkalemia Current Visit: Yes Status: Resolved (2) GUTIERREZ (acute kidney injury) Current Visit: Yes Status: Acute Assessment and plan: Likely post-renal along with use of MICHAEL inhibitor as outpatient, history of kidney stones. Nephrology and urology consults appreciated. Continue IV hydration, serum creatinine slightly worse at 2.71. Renal ultrasound shows mild bilateral hydronephrosis. CT abdomen showed left hydronephrosis with obstructing 2.5 cm left ureteropelvic junction stone. Underwent cystoscopy and left ureteral stent placement today. Monitor urine output closely, avoid new nephrotoxic agents. Lisinopril and metformin have been on hold. (3) Diabetes Current Visit: Yes Status: Chronic Assessment and plan: Blood sugars noted to be well controlled. Continue Accu-Chek blood glucose monitoring with sliding scale insulin as needed. Hold metformin for now. Diabetic diet. Qualifiers: Diabetes mellitus type: type 2 Diabetes mellitus retirement insulin use: without ad terminal makeup operator use Diabetes mellitus complication status: with kidney complications Diabetes mellitus complication detail: with nephropathy Qualified Code(s): E11.21 - Type 2 diabetes mellitus with diabetic nephropathy (4) Hypertension Current Visit: Yes Status: Chronic Assessment and plan: Blood pressure well controlled. Hold lisinopril. Continue other medications. Qualifiers: Hypertension type: essential hypertension Qualified Code(s): I10 - Essential (primary) hypertension (5) Hyperlipidemia Current Visit: Yes Status: Chronic Qualifiers: Hyperlipidemia type: unspecified Qualified Code(s): E78.5 - Hyperlipidemia , unspecified - Time Spent With Patient Total time spent is greater than 50% in coordination of care (as documented) at patient's floor/unit and/or counseling patient: - Subjective Interval history: Reports feeling well, wants to go home; no chest pain, shortness of breath, flank pain; underwent ureteral stent placement today, has slight hematuria; no fever/chills; - Constitutional Vitals: Temp Pulse Resp BP Pulse Ox 98.1 F 80 18 125/81 95 10/13/17 14:38 10/13/17 14:38 10/13/17 14:38 10/13/17 14:38 10/13/17 14:38 General appearance: Present: A&O X 3, morbidly obese, answers questions appropriately - Respiratory Respiratory exam: Present: CTAB. Absent: accessory muscle use, rales, rhonchi, wheezes - Cardiovascular Cardiovascular exam: Present: RRR, +S1, +S2. Absent: diastolic murmur, gallop, rubs, systolic murmur - GI/Abdominal GI/Abdominal exam: Present: normal bowel sounds, soft, no peritoneal signs. Absent: distended, tenderness Internal Medicine: Result - Labs CBC & Chem 7: 10/11/17 15:40 10/13/17 05:59 Labs: BMP 10/13/17 05:59 Sodium 137 Potassium 4.9 Chloride 108 H Carbon Dioxide 22 L BUN 51 H Creatinine 2.71 H Glucose 163 H Calcium 9.0 - Impressions Impressions Retrograde Pyelogram 10/13/17 00:00 IMPRESSION: Intraprocedural fluoroscopic spot images as above. See separate procedure report for more information. D/ / Walt Montenegro MD / Walt Montenegro MD Interpreting Provider: Walt Montenegro MD Consult Discharge Plan - Plan Referrals: Nilam Del Cid, CARDIOLOGY NURSE [Primary Care Provider] - (web request sent on 10/12/17)
[2017-10-13] MEDS ORDERED: Insulin DETEMIR 100 UNIT/ML X5UNITS SQ SCH (18:00)
[2017-10-13] MEDS ORDERED: Insulin LISPRO 300 UNITS/3 ML VIAL SQ SCH (21:00)
[2017-10-14 04:58] LABS: Calcium 9.3 mg/dL (8.6-10.3); Magnesium 1.6 mg/dL (1.6-2.6); Potassium 4.8 mEq/L (3.5-5.1)
[2017-10-14] MEDS: *HR* Heparin 5,000 UNIT/ML VIAL SQ SCH (05:56)
[2017-10-14 07:38] VITALS: BP 130/84
[2017-10-14] MEDS: Gabapentin 300 MG CAPSULE PO SCH (07:39)
[2017-10-14] MEDS: Insulin LISPRO 300 UNITS/3 ML VIAL SQ SCH (07:40)
--- NOTE | 2017-10-14 08:03 | Urology Progress Note ---
Date of Encounter: 10/14/17 Time of Encounter: 08:01 - Assessment and Plan (1) Hydronephrosis Current Visit: Yes Status: Acute Qualifiers: Hydronephrosis type: unspecified Qualified Code(s): N13.30 - Unspecified hydronephrosis (2) Nephrolithiasis Current Visit: Yes Status: Acute Assessment and plan: Postoperative day #1 status post left renal stent placement. Doing well. 1. Urology will arrange for left shockwave lithotripsy as an outpatient. Please call with questions. Progress Note Narrative: Doing well today. Postop day #1 status post cystoscopy and left ureteral stent placement. Pain is controlled. He is urinating well. Objective Initial Vital Signs Temp Pulse Resp BP Pulse Ox 98.2 F 98 18 147/87 95 10/11/17 14:42 10/11/17 14:42 10/11/17 14:42 10/11/17 14:42 10/11/17 14:42 - General physical appearance Present: well developed, well nourished, no distress - Respiratory Present: normal respiratory effort - Abdomen Present: soft - Labs 10/11/17 15:40 10/14/17 04:10 Diabetes panel 10/14/17 Range/Units 04:10 Sodium 136 (136-145) mEq/L Potassium 4.8 (3.5-5.1) mEq/L Chloride 106 (98-107) mEq/L Carbon Dioxide 21 L (23-29) mEq/L BUN 44 H (6-20) mg/dL Creatinine 2.01 H (0.70-1.30) mg/dL Glucose 165 H (70-105) mg/dL Calcium 9.3 (8.6-10.3) mg/dL Calcium panel 10/14/17 Range/Units 04:10 Calcium 9.3 (8.6-10.3) mg/dL Pituitary panel 10/14/17 Range/Units 04:10 Sodium 136 (136-145) mEq/L Potassium 4.8 (3.5-5.1) mEq/L Chloride 106 (98-107) mEq/L Carbon Dioxide 21 L (23-29) mEq/L BUN 44 H (6-20) mg/dL Creatinine 2.01 H (0.70-1.30) mg/dL Glucose 165 H (70-105) mg/dL Calcium 9.3 (8.6-10.3) mg/dL Adrenal panel 10/14/17 Range/Units 04:10 Sodium 136 (136-145) mEq/L Potassium 4.8 (3.5-5.1) mEq/L Chloride 106 (98-107) mEq/L Carbon Dioxide 21 L (23-29) mEq/L BUN 44 H (6-20) mg/dL Creatinine 2.01 H (0.70-1.30) mg/dL Glucose 165 H (70-105) mg/dL Calcium 9.3 (8.6-10.3) mg/dL Consult Discharge Plan - Plan Referrals: Nilam Del Cid, ROSENDA [Primary Care Provider] - (web request sent on 10/12/17)
[2017-10-14] MEDS ORDERED: Aspirin Enteric Coated 81 MG Tablet PO SCH (09:00)
--- NOTE | 2017-10-14 09:17 | Electrocardiograph Report ---
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
--- NOTE | 2017-10-14 09:34 | Nephrology Progress Note ---
Date of Encounter: 10/14/17 Time of Encounter: 08:45 - Assessment and Plan (1) GUTIERRZE (acute kidney injury) Current Visit: Yes Status: Acute Renal fct improving creat 2.01. Post obstructive diuresis. Will follow in office for nephrolithiasis workup, [employer]. Avoid nephrotoxins. Subjective Interval history: S/P cystoscopy, left ureteral stent/UPJ obstructing stone. Denies pain. Sitting up in chair. Ate breakfast, drinking fluids.Wants to go home.Documented urine output 6850cc. Objective - Vital Signs Vital signs: Vital Signs Temp Pulse Resp BP Pulse Ox 10/14/17 07:33 98.0 F 62 18 130/84 97 10/14/17 03:47 97.4 F L 58 17 116/77 97 10/13/17 23:38 98.2 F 71 17 104/64 94 10/13/17 19:37 98.5 F 85 17 138/83 92 10/13/17 14:38 98.1 F 80 18 125/81 95 10/13/17 11:35 97.5 F L 71 19 115/69 95 10/13/17 10:55 97.5 F L 70 20 110/67 97 10/13/17 10:45 74 16 109/64 96 10/13/17 10:35 76 16 96/62 95 10/13/17 10:25 97.6 F 76 12 126/63 99 Intake and Output 10/13/17 10/14/17 10/14/17 23:59 07:59 15:59 Intake Total 1850 / 1850 400 / 400 360 / 360 Output Total 2550 / 2550 2750 / 2750 Balance -700 / -700 -2350 / -2350 360 / 360 Intake: IV Fluids 1000 / 1000 0.9 % Sodium Chloride 1,000 ML 1000 / 1000 @ 125 mls/hr IVC .Q8H [facility] Rx#: [id number] Oral 850 / 850 400 / 400 360 / 360 Output: Urine 2550 / 2550 2750 / 2750 Other: Meal Breakfast Percent of Meal Consumed 100% # Voids 1 1 Weight 135.341 kg Blood Glucose* 247 164 - General Appearance General appearance: Present: well-developed, well-nourished, appears started age EENT: Present: mucous membranes moist Neck: Present: no JVD Respiratory: Present: clear Cardiology: Present: no edema, regular rate, regular rhythm Gastrointestinal: Present: normoactive bowel sounds, no tenderness Integumentary: Present: warm and dry Neurologic: Present: alert and oriented x3 - Lab 10/11/17 15:40 10/14/17 04:10 Most recent lab results Calcium 9.3 mg/dL (8.6-10.3) 10/14/17 04:10 Phosphorus 4.6 mg/dL (2.7-4.5) H 10/12/17 11:05 Magnesium 1.6 mg/dL (1.6-2.6) 10/14/17 04:10 Urine Creatinine 68 mg/dL 10/12/17 21:30 Ur Total Protein 24 Hr 285 mg/day (50-80) H 10/12/17 21:30 Urine Sodium 102.6 mEq/L 10/11/17 20:14 Urine Total Protein 8 mg/dL (1-14) 10/12/17 21:30 Consult Discharge Plan - Plan Referrals: Nilam Del Cid, COMPUTER NUMERICAL CONTROL GRINDER [Primary Care Provider] - (web request sent on 10/12/17)
--- NOTE | 2017-10-14 10:15 | Discharge Summary ---
- NOTES TO OUTPATIENT PROVIDER Notes to Outpatient Provider: GUTIERREZ due to obstructive ureteral stone, s/p left ureteral stent; needs outpatient Urology and Nephrology f/up; BMP monitoring; Orders not resulted at time of discharge: Pending orders 10/12/17 06:21 [place] Lambda Qnt FLC w Ratio AM 0400 Protein Electrophoresis AM 0400 Date of Encounter: 10/14/17 Time of Encounter: 10:13 - Discharge Diagnosis (1) Hyperkalemia Priority: Primary Status: Resolved (2) GUTIERREZ (acute kidney injury) Priority: Primary Status: Acute (3) Diabetes Priority: Secondary Status: Chronic Qualifiers: Diabetes mellitus type: type 2 Diabetes mellitus exterminator termite insulin use: without exterminator termite use Diabetes mellitus complication status: with kidney complications Diabetes mellitus complication detail: with nephropathy Qualified Code(s): E11.21 - Type 2 diabetes mellitus with diabetic nephropathy (4) Hypertension Priority: Secondary Status: Chronic Qualifiers: Hypertension type: essential hypertension Qualified Code(s): I10 - Essential (primary) hypertension (5) Hyperlipidemia Priority: Secondary Status: Chronic Qualifiers: Hyperlipidemia type: unspecified Qualified Code(s): E78.5 - Hyperlipidemia , unspecified Hospital course: Mr. Cavanaugh is a 57 year old male with the above medical problems who was sent by his primary care physician due to abnormal labs. Patient was noted to have acute kidney injury, he was started on IV hydration. Noted to be on MICHAEL inhibitor and metformin, which have been held. Nephrology was consulted, agreed with this management. Urinalysis showed negative proteins, 24-hour urine protein was minimal, 285. Renal ultrasound showed mild bilateral hydronephrosis and nonobstructing renal stones. Urology was consulted, CT abdomen was ordered which showed left hydronephrosis with obstructing 2.5 cm ureteropelvic junction stone. Patient underwent cystoscopy and left ureteral stent placement. Renal function is steadily improving, serum creatinine is noted to be 2.01 today. Nephrology and urology signed off, recommend outpatient follow-up. Patient is medically stable and is extremely anxious to be discharged home. Discharge discussed with: patient, consultants intern - Time Spent with Patient Total time spent providing and/or coordinating discharge services: Greater than 30 minutes (45 min) - Discharge Medications Home Medications: Cyclobenzaprine HCl 10 mg PO TID PRN 01/01/16 [History] Aspirin [Lo-Dose Aspirin EC] 81 mg PO DAILY 10/11/17 [History] Gabapentin [Neurontin] 300 mg PO TID 10/11/17 [History] Insulin Glargine,Hum.rec.anlog [Basaglar Kwikpen U-100] 25 unit SQ QPM 10/11/17 [History] Allergies/Adverse Reactions: 3 Allergy/AdvReac Type Severity Reaction Status Date / Time No Known Allergies Allergy Verified 01/01/16 17:27 Date of admission: 10/11/17 17:11 Primary care physician: Nilam Del Cid CNP Consults: 10/11/17 17:30 Consult to Nephrology [CONS] Routine Consulting Provider: [facility] Katiuska WANG Reason for Consult: new hyperK and GUTIERREZ ? Call Completed: No 10/12/17 09:42 Consult to Urology [CONS] Routine Consulting Provider: Urology [place] Reason for Consult: GUTIERREZ, bilat hydro/stones on US, hx stones Time Notified: 09:43 Call Completed: Yes Discharging clinician: Preeti Lazcano Anticipated date of discharge: 10/14/17 - Constitutional Vitals: Temp Pulse Resp BP Pulse Ox 98.0 F 62 18 130/84 97 10/14/17 07:33 10/14/17 07:33 10/14/17 07:33 10/14/17 07:33 10/14/17 07:33 General appearance: Present: A&O X 3, morbidly obese, answers questions appropriately - Cardiovascular Cardiovascular exam: Present: RRR, +S1, +S2. Absent: diastolic murmur, gallop, rubs, systolic murmur - Patient Status Disposition: Home, Self-Care Condition: Good Functional capacity at discharge: independent ambulation Overall status at discharge: patient is progressing back to baseline - Discharge Instructions Instructions: Acute Kidney Injury (DC), Voiding Cystourethrogram (DC) Follow Up With: Nilam Del Cid CNP [Primary Care Provider] - (web request sent on 10/12/17) Todd Colón MD [Partnered Physician] - (office will call for an appointment) Additional Instructions: F/up with Urology in 1 week F/up with /Kareen Ibanez- ROSENDA in 1 week - Diet and Activity Activity: resume usual activities as tolerated Diet: advance to your usual diet, diabetic diet, low fat, low cholesterol, low salt diet
[2017-10-15 06:54] LABS: Alpha 2 Globulin (PEP) 0.98 g/dL (0.48-1.05); Beta Globulin (PEP) 0.93 g/dL (0.48-1.10)
[2017-10-15 07:02] LABS: Kappa Qnt Free Light Chains 3.36 mg/dL (0.33-1.94); Lambda Qnt Free Light Chains 2.82 mg/dL (0.57-2.63)
[2017-10-15 08:29] LABS: IFE Reflexed NOT DONE
== END 2017-10-14 10:49 | disposition home or self-care (01) | DRG 694 ==
LOC: EMEROO 14:40 → 2ANU 14:40 → SUATTDRO 17:11
PROVIDERS: ADMIT Family Medicine; ATTEND Internal Medicine

== ENCOUNTER 2018-02-09 01:24 | Inpatient (IN) ==
[2018-02-09] MEDS ORDERED: Isovue-370 500 ML INFUS..BTL IV ONE (01:55)
--- NOTE | 2018-02-09 02:06 | Emergency Department Note ---
Disposition Clinical Impression: Hypoxia, Hyperglycemia Pulmonary edema Qualifiers: Chronicity: chronic Qualified Code(s): J81.1 - Chronic pulmonary edema Heart failure Qualifiers: Heart failure type: unspecified Heart failure chronicity: unspecified Qualified Code(s): I50.9 - Heart failure, unspecified Disposition: Admitted As Inpatient Condition: Fair Referrals: Nilam Del Cid CUSTOMER CARE TEAM COACH [Primary Care Provider] - Forms: ED Satisfaction Letter Time of Disposition: 05:12 SOB HPI - General Chief Complaint: ED Shortness of Breath/Dyspnea Stated Complaint: SOB Time Seen by Provider: 02/09/18 01:34 Source: patient, family Mode of arrival: ambulatory Limitations: no limitations Nursing Notes Reviewed: Yes Vital Signs Reviewed: Yes - History of Present Illness 57-year-old male with history of hypertension, diabetes, renal disease presents for evaluation of dyspnea. Patient states that symptoms started earlier today. States that he is postop less than 48 hours from a percutaneous nephrolithotomy, renal stone. Patient denies any, occasions. Patient states that he was out in does not recall being intubated. Patient denies having fully catheter placed. Denies any abdominal pain or nausea vomiting. Patient states that he felt short of breath with simply exerting and at rest. Denies history of sleep apnea or oxygen therapy. Denies history of COPD. Denies history of heart attacks or stents. - Related Data Home Medications Medication Instructions Recorded Confirmed Gabapentin [Neurontin] 300 mg PO TID PRN 10/28/17 02/07/18 Insulin Glargine,Hum.rec.anlog 25 unit SQ HS 10/28/17 02/07/18 [Shweta Fleming U-100] Multivitamin [One Daily 1 tab PO DAILY 10/28/17 02/07/18 Multivitamin] Allopurinol [Zyloprim 300 MG] 450 mg PO DAILY PRN 02/07/18 02/07/18 Metoprolol Succinate [Toprol Xl] 50 mg PO DAILY 02/07/18 02/07/18 Previous Rx's Medication Instructions Recorded Acetaminophen [Tylenol] 650 mg PO Q6HR PRN tablet 02/08/18 Insulin DETEMIR [Levemir] 25 unit SQ HS [id number] 02/08/18 Insulin LISPRO [HumaLOG] 0 units SQ TIDAC vial 02/08/18 OxyCODONE/APAP 5/325 [Percocet 2 tab PO Q6HR PRN 5 Days #15 tablet 02/08/18 5/325 MG] Sulfamethoxazole/Trimeth DS 1 each PO BID #6 tablet 02/08/18 [Bactrim DS] Allergies Allergy/AdvReac Type Severity Reaction Status Date / Time No Known Allergies Allergy Verified 02/09/18 01:48 All systems ED: reviewed and negative except as stated. Constitutional: Denies: fever Cardiovascular: Denies: chest pain Respiratory: Reports: dyspnea. Denies: cough, sputum production Gastrointestinal: Denies: abdominal pain, nausea, vomiting Past Medical History - Past Medical History Source: patient Medical history: Reports: cancer, diabetes, hyperlipidemia, hypertension, kidney stones, renal disease Surgical history: Reports: orthopedic, other Psychiatric history: Reports: no psych history - Social History Smoking Status: Never smoker Smokeless Tobacco Status: No Alcohol use: Reports: none Drug use: Reports: none Physical Exam - General Limitations: no limitations General appearance: alert, in no apparent distress, obese - Head Head exam: atraumatic, normocephalic, normal inspection - Eye Eye exam: Present: normal appearance, PERRL, EOMI - ENT ENT exam: normal exam, normal oropharynx, mucous membranes moist - Neck Neck exam: Present: normal inspection - Chest Chest inspection: Present: normal inspection, symmetric chest wall rise - Respiratory Respiratory exam: Present: normal lung sounds bilaterally. Absent: respiratory distress - Cardiovascular Cardiovascular exam: Present: regular rate, normal rhythm. Absent: systolic murmur - Abdominal Exam Abdominal exam: Present: soft, Non-Tender - Extremities Exam Extremities exam: Present: normal inspection. Absent: pedal edema - Back Exam Back exam: Present: normal inspection, other (Patient has a clean dressing intact where he had recent procedure on the right paraspinal musculature.) - Neurological Exam Neurological exam: Present: alert - Skin Skin exam: Present: warm, dry, intact, normal color Course Course Narrative: Patient seen and examined. Patient is recently postop. Patient is hypoxia requiring some options of medication. Will get basic labs including a CT scan of the chest - Reevaluation(s) Reevaluation #1: Patient would not tolerate lying back for the CT scan. Patient still deemed moderate to high risk. We will get a d-dimer as well as order VQ scan. Will treat empirically with heparin. Time: 05:12 Reevaluation #2: Patient is up-to-date on plan of care. Patient states he has had had a mild cough with some intermittent sputum production. No fevers. At this point the patient has mild cardiomegaly with some pulmonary edema. Time: 05:38 Vital Signs Temperature 98.7 F 02/09/18 01:29 Pulse Rate 98 02/09/18 01:29 Respiratory Rate 24 02/09/18 01:29 Blood Pressure 150/82 02/09/18 01:29 O2 Sat by Pulse Oximetry 93 02/09/18 01:29 Temperature 98.7 F 02/09/18 01:29 Pulse Rate 98 02/09/18 01:29 Respiratory Rate 24 02/09/18 01:29 Blood Pressure 150/82 02/09/18 01:29 O2 Sat by Pulse Oximetry 93 02/09/18 01:29 Oxygen Delivery Oxygen Delivery Nasal Cannula Shortness of Breath/Dyspnea - MDM Narrative Medical decision making narrative: Patient presented for concerns of dyspnea. Patient is postop and did have initial concerns for PE. Patient was moderate to high risk and a CT angios was ordered however the patient cannot tolerate lying back. Patient will be treated empirically conjunction with the hospitalist. Will get a VQ scan as well as a d-dimer in hopes of definitive in ruling out a PE. Patient chest x- ray shows pulmonary edema in the setting of mild cardiomegaly and an elevated BNP from prior evaluation the patient be treated more his heart failure stand pneumonia. Patient does not have a fever. Patient does require some oxygen here in the ED and will be admitted to the hospitalist service. Patient is not in any acute respiratory distress. Patient has no contraindications to anticoagulation. - Lab Data Lab results reviewed: Yes I reviewed the patient's lab results. Result diagrams: 02/09/18 02:00 02/09/18 02:00 Lab Results 02/09/18 02/09/18 02/09/18 Range/Units 02:00 02:00 02:00 WBC 10.1 (4.3-11.1) K/mcL RBC 4.05 L (4.19-5.50) M/mcL Hgb 11.8 L (12.9-16.9) g/dL Hct 35.6 L (37.5-50.1) % MCV 87.9 (83.0-100.0) fL MCH 29.1 (28.0-33.3) pg MCHC 33.1 (31.6-35.5) g/dL RDW 12.3 (11.5-14.5) % Plt Count 195 (140-400) K/mcL MPV 9.7 (9.4-12.4) fL Immature Gran % 0.4 (0-4) % Seg Neutrophils % 73.0 % Lymphocytes % 15.1 % Monocytes % 10.9 % Eosinophils % 0.3 % Basophils % 0.3 % Neutrophils # 7.4 (1.6-8.9) K/mcL Lymphocytes # 1.5 (0.6-4.6) K/mcL Monocytes # 1.1 (0.0-1.3) K/mcL Eosinophils # 0.0 (0.0-0.6) K/mcL Basophils # 0.0 (0.0-0.2) K/mcL Sodium 135 L (136-145) mEq/L Potassium 4.2 (3.5-5.1) mEq/L Chloride 101 (98-107) mEq/L Carbon Dioxide 23 (23-29) mEq/L BUN 29 H (6-20) mg/dL Creatinine 1.44 H (0.70-1.30) mg/dL Est GFR ( Amer) > 60 (> 60) Est GFR (Non-Af Amer) 50 L (> 60) BUN/Creatinine Ratio 20 (6-26) Glucose 291 H (70-105) mg/dL Calculated Osmolality 297 (280-300) Calcium 9.1 (8.6-10.3) mg/dL Troponin I < 0.03 (< 0.04) ng/mL B-Natriuretic Peptide 63 (Less than 100) pg/mL - Radiology Data Radiology results reviewed: Yes I reviewed the patient's radiology results. Chest X-Ray 02/09/18 01:55 IMPRESSION: Bilateral pulmonary opacities suspicious for pneumonia or edema. Mild cardiomegaly D/ / Marques White MD / Marques White MD Interpreting Provider: Marques White MD - EKG Data EKG attestation: Yes I reviewed and interpreted this EKG. EKG shows normal: Reports: sinus rhythm Rate: Reports: normal Rhythm: Reports: NSR [place]/QRS: Reports: left axis deviation Interpretation: Reports: no acute changes, unchanged when compared to prior tracing (date), nonspecific ST-T wave changes S.Carol.Penny - Debby Situation: Demographics Background: Presenting Complaint Assessment: Vital Signs, Course and respsone to treatment, Patient/Family Expectation Recommendation: Barrier(s) to disposition, Recommendation based on pending studies, treatments, or consults S.B.AAntoniaRAntonia Report Given to: Dr. Roa SLawrenceADarinel Repor Time: 05:12
[2018-02-09 02:21] LABS: Basophils % 0.3 %; Eosinophils % 0.3 %; Hematocrit 35.6 % (37.5-50.1); Hemoglobin 11.8 g/dL (12.9-16.9); Immature Granulocytes % 0.4 % (0-4); Lymphocytes # 1.5 K/mcL (0.6-4.6); Lymphocytes % 15.1 %; Mean Corpuscular HGB Conc 33.1 g/dL (31.6-35.5); Mean Corpuscular Hemoglobin 29.1 pg (28.0-33.3); Mean Corpuscular Volume 87.9 fL (83.0-100.0); Mean Platelet Volume 9.7 fL (9.4-12.4); Monocytes # 1.1 K/mcL (0.0-1.3); Monocytes % 10.9 %; Neutrophils # 7.4 K/mcL (1.6-8.9); Platelet Count 195 K/mcL (140-400); Red Blood Count 4.05 M/mcL (4.19-5.50); Red Cell Distribution Width 12.3 % (11.5-14.5)
[2018-02-09 02:36] LABS: BUN/Creatinine Ratio 20 (6-26); Blood Urea Nitrogen 29 mg/dL (6-20); Calcium 9.1 mg/dL (8.6-10.3); Carbon Dioxide 23 mEq/L (23-29); Chloride 101 mEq/L (98-107); Glucose 291 mg/dL (70-105); Osmolality,Calculated 297 (280-300); Potassium 4.2 mEq/L (3.5-5.1); Sodium 135 mEq/L (136-145); eGFR For Non-African Americans 50 (> 60)
[2018-02-09 02:37] LABS: Troponin I < 0.03 ng/mL (< 0.04)
[2018-02-09] MEDS ORDERED: *HR* Heparin 5,000 UNIT/ML VIAL IVP PRN (05:09)
[2018-02-09] MEDS ORDERED: *HR* Heparin 5,000 UNIT/ML VIAL IVP ONE (05:09)
[2018-02-09] MEDS ORDERED: Furosemide 40 MG/4 ML VIAL IVP ONE (05:49)
[2018-02-09 06:03] LABS: Hematocrit 36.5 % (37.5-50.1); Hemoglobin 12.2 g/dL (12.9-16.9); Mean Corpuscular HGB Conc 33.4 g/dL (31.6-35.5); Mean Corpuscular Hemoglobin 28.8 pg (28.0-33.3); Mean Corpuscular Volume 86.3 fL (83.0-100.0); Mean Platelet Volume 9.6 fL (9.4-12.4); Platelet Count 243 K/mcL (140-400); Red Blood Count 4.23 M/mcL (4.19-5.50); Red Cell Distribution Width 12.4 % (11.5-14.5)
--- NOTE | 2018-02-09 06:10 | Emergency Department Note ---
Disposition Clinical Impression: Hypoxia, Hyperglycemia Pulmonary edema Qualifiers: Chronicity: chronic Qualified Code(s): J81.1 - Chronic pulmonary edema Heart failure Qualifiers: Heart failure type: unspecified Heart failure chronicity: unspecified Qualified Code(s): I50.9 - Heart failure, unspecified Disposition: Admitted As Inpatient Condition: Fair General Adult HPI - General Chief complaint: ED Shortness of Breath/Dyspnea Stated complaint: SOB Time Seen by Provider: 02/09/18 01:34 Source: patient, family Mode of arrival: ambulatory Limitations: no limitations Nursing Notes Reviewed: Yes Vital Signs Reviewed: Yes - History of Present Illness Pain Scale: 9 - Related Data Home Medications Medication Instructions Recorded Confirmed Gabapentin [Neurontin] 300 mg PO TID PRN 10/28/17 02/07/18 Insulin Glargine,Hum.rec.anlog 25 unit SQ HS 10/28/17 02/07/18 [Basaglar Kwikpen U-100] Multivitamin [One Daily 1 tab PO DAILY 10/28/17 02/07/18 Multivitamin] Allopurinol [Zyloprim 300 MG] 450 mg PO DAILY PRN 02/07/18 02/07/18 Metoprolol Succinate [Toprol Xl] 50 mg PO DAILY 02/07/18 02/07/18 Previous Rx's Medication Instructions Recorded Acetaminophen [Tylenol] 650 mg PO Q6HR PRN tablet 02/08/18 Insulin DETEMIR [Levemir] 25 unit SQ HS [id number] 02/08/18 Insulin LISPRO [HumaLOG] 0 units SQ TIDAC vial 02/08/18 OxyCODONE/APAP 5/325 [Percocet 2 tab PO Q6HR PRN 5 Days #15 tablet 02/08/18 5/325 MG] Sulfamethoxazole/Trimeth DS 1 each PO BID #6 tablet 02/08/18 [Bactrim DS] Allergies Allergy/AdvReac Type Severity Reaction Status Date / Time No Known Allergies Allergy Verified 02/09/18 01:48 Constitutional: Denies: fever Cardiovascular: Denies: chest pain Respiratory: Reports: dyspnea. Denies: cough, sputum production Gastrointestinal: Denies: abdominal pain, nausea, vomiting Past Medical History - Past Medical History Medical history: Reports: cancer, diabetes, hyperlipidemia, hypertension, kidney stones, renal disease Surgical history: Reports: orthopedic, other Psychiatric history: Reports: no psych history - Social History Smoking Status: Never smoker Smokeless Tobacco Status: No Alcohol use: Reports: none Drug use: Reports: none Physical Exam - General Limitations: no limitations General appearance: alert, in no apparent distress, obese Course Vital Signs Temperature 98.7 F 02/09/18 01:29 Pulse Rate 98 02/09/18 01:29 Respiratory Rate 24 02/09/18 01:29 Blood Pressure 150/82 02/09/18 01:29 O2 Sat by Pulse Oximetry 93 02/09/18 01:29 Temperature 98.7 F 02/09/18 01:29 Pulse Rate 98 02/09/18 01:29 Respiratory Rate 24 02/09/18 01:29 Blood Pressure 150/82 02/09/18 01:29 O2 Sat by Pulse Oximetry 93 02/09/18 01:29 Oxygen Delivery Oxygen Delivery Nasal Cannula Medical Decision Making - Medical Records Medical records reviewed: Yes I reviewed the patient's medical records. - Lab Data Lab results reviewed: Yes I reviewed the patient's lab results. Result diagrams: 02/09/18 05:47 02/09/18 02:00 Lab Results 02/09/18 02/09/18 02/09/18 Range/Units 02:00 02:00 02:00 WBC 10.1 (4.3-11.1) K/mcL RBC 4.05 L (4.19-5.50) M/mcL Hgb 11.8 L (12.9-16.9) g/dL Hct 35.6 L (37.5-50.1) % MCV 87.9 (83.0-100.0) fL MCH 29.1 (28.0-33.3) pg MCHC 33.1 (31.6-35.5) g/dL RDW 12.3 (11.5-14.5) % Plt Count 195 (140-400) K/mcL MPV 9.7 (9.4-12.4) fL Immature Gran % 0.4 (0-4) % Seg Neutrophils % 73.0 % Lymphocytes % 15.1 % Monocytes % 10.9 % Eosinophils % 0.3 % Basophils % 0.3 % Neutrophils # 7.4 (1.6-8.9) K/mcL Lymphocytes # 1.5 (0.6-4.6) K/mcL Monocytes # 1.1 (0.0-1.3) K/mcL Eosinophils # 0.0 (0.0-0.6) K/mcL Basophils # 0.0 (0.0-0.2) K/mcL Sodium 135 L (136-145) mEq/L Potassium 4.2 (3.5-5.1) mEq/L Chloride 101 (98-107) mEq/L Carbon Dioxide 23 (23-29) mEq/L BUN 29 H (6-20) mg/dL Creatinine 1.44 H (0.70-1.30) mg/dL Est GFR ( Amer) > 60 (> 60) Est GFR (Non-Af Amer) 50 L (> 60) BUN/Creatinine Ratio 20 (6-26) Glucose 291 H (70-105) mg/dL Calculated Osmolality 297 (280-300) Calcium 9.1 (8.6-10.3) mg/dL Troponin I < 0.03 (< 0.04) ng/mL B-Natriuretic Peptide 63 (Less than 100) pg/mL 02/09/18 Range/Units 05:47 WBC 11.1 (4.3-11.1) K/mcL RBC 4.23 (4.19-5.50) M/mcL Hgb 12.2 L (12.9-16.9) g/dL Hct 36.5 L (37.5-50.1) % MCV 86.3 (83.0-100.0) fL MCH 28.8 (28.0-33.3) pg MCHC 33.4 (31.6-35.5) g/dL RDW 12.4 (11.5-14.5) % Plt Count 243 (140-400) K/mcL MPV 9.6 (9.4-12.4) fL Immature Gran % (0-4) % Seg Neutrophils % % Lymphocytes % % Monocytes % % Eosinophils % % Basophils % % Neutrophils # (1.6-8.9) K/mcL Lymphocytes # (0.6-4.6) K/mcL Monocytes # (0.0-1.3) K/mcL Eosinophils # (0.0-0.6) K/mcL Basophils # (0.0-0.2) K/mcL Sodium (136-145) mEq/L Potassium (3.5-5.1) mEq/L Chloride (98-107) mEq/L Carbon Dioxide (23-29) mEq/L BUN (6-20) mg/dL Creatinine (0.70-1.30) mg/dL Est GFR ( Amer) (> 60) Est GFR (Non-Af Amer) (> 60) BUN/Creatinine Ratio (6-26) Glucose (70-105) mg/dL Calculated Osmolality (280-300) Calcium (8.6-10.3) mg/dL Troponin I (< 0.04) ng/mL B-Natriuretic Peptide (Less than 100) pg/mL - Radiology Data Radiology results reviewed: Yes I reviewed the patient's radiology results. Chest X-Ray 02/09/18 01:55 IMPRESSION: Bilateral pulmonary opacities suspicious for pneumonia or edema. Mild cardiomegaly D/ / Marques White MD / Marques White MD Interpreting Provider: Marques White MD - EKG Data EKG #1 EKG attestation: Yes I reviewed and interpreted this EKG. EKG results narrative: EKG shows a normal sinus rhythm with ventricular rate of 92. No acute ST segment elevation or depression. No arrhythmia or ectopy. Critical Care Time Critical Care Time: Yes Total Critical Care Time: 35 Attestation: Critical care performed: Time is exclusive of separately billable procedures. Time includes: direct patient care, patient reassessment, coordination of patient care, interpretation of data (laboratory data, radiology data, and respiratory data), review of patient's medical records, medical consultation and documentation of patient care. Procedures included in critical care time: Procedures excluded from critical care time: Attestation Statement - Attestation Attestation: I, Baltazar Scales MD, personally evaluated this patient and discussed their management with the resident physician. I reviewed the resident's note and agree with the documented findings, medical decision making, and plan of care. 57-year-old male who had a transcutaneous kidney stone removal 2 days ago presents to the emergency department complaining of shortness of breath that started about noon yesterday. Mild cough. No fever or chest pain. The shortness of breath is worse with exertion but also much worse with lying down. He does have a prior history of pneumonia. No definite history of CHF. On examination patient is a well-developed morbidly obese male in no acute distress. He is alert and oriented 3. There is no cyanosis or diaphoresis. Breath sounds are equal bilaterally with a few bibasilar rales. No wheezes. Heart regular rate and rhythm. Abdomen soft and nontender with normal bowel sounds. No acute changes on EKG. Chest x-ray shows mild cardiomegaly with bilateral opacities consistent with pneumonia or edema. Labs reviewed. Due to his history of recent surgery we attempted to do a CT angiogram of the chest however patient was unable to lie flat due to the shortness of breath. Patient did fine as long as he was sitting upright or standing that whenever he tried to lie back he became short of breath and had to sit up. Patient was started on a heparin bolus and infusion to cover for possible PE. He also received Lasix 40 mg IV. The hospitalist, Dr. Roa, was consulted and accepted admission of the patient.
[2018-02-09 06:12] LABS: Heparin anti-factor XA UFH 0.05 IU/mL (0.30-0.70)
[2018-02-09 06:13] LABS: INR 1.1; Prothrombin Time 12.5 Seconds (9.4-12.1)
--- NOTE | 2018-02-09 07:37 | Internal Med History&Physical ---
Date of Encounter: 02/09/18 Time of Encounter: 07:32 Internal Medicine - H&P: HPI Chief complaint: Shortness of breath Admitted From: Home Plans for Post Hospital Care: Home History of present illness: Mr. Cavanaugh is a 57 year old male with history of diabetes, and hypertension and recent Right percutaneous nephrolithotomy on 02/07 resented to the emergency department with shortness of breath. As per patient he was discharged on 02/08 after having urological procedure and went home. While at home he sat in his chair and living room and watch TV and had mild dyspnea however he thought that it was normal postprocedure. At about midnight his dyspnea worsened to the point that he felt that he was suffocating so he decided to come to the emergency department for further evaluation. He reports PND, orthopnea and was unable to sleep secondary to shortness of breath. Currently he is unable to lay flat and has to sit up to help with his dyspnea. Ambulation worsens his dyspnea and sitting up alleviates the dyspnea. At baseline he is able to walk at least 1 block without having to stop for shortness of breath. He denies history of COPD or heart disease in the past. His shortness of breath is not associated with palpitations or chest pain. He has never had symptoms like this before. He denies fever chills cough, sputum production. He does report that he has not ambulated as much as he would like in the past week, denies history of blood clots, denies leg swelling or calf tenderness. While in the ED chest x-ray was performed Bilateral pulmonary opacities suspicious for pneumonia or edema and Mild cardiomegaly. CTPA was ordered however patient was unable to lay flat for the procedure. He was given Lasix 40 mg IV and was endorsed for admission for further management of dyspnea. Past Med Surg Social Fam HX - Past Medical History Medical history: cancer, diabetes, hyperlipidemia, hypertension, kidney stones, renal disease Additional medical history: skin CA,. lung nodules,. bronchitis Psychiatric history: no psych history - Past Surgical History Surgical History: orthopedic, other Additional surgical history: BACK SURGERY,. Skin CA removed. thumb surgery,. kidney stone - Social History Smoking Status: Never smoker Smokeless Tobacco Status: No Alcohol use: none Drug use: none - Family History Father Adopted: No Hx Family Cardiac Disorders: Yes (Myocardial infarction in his 50s) Hx Family Neurologic Disorders: Yes (Cerebrovascular accident) Mother Adopted: No Living Status: Still Living Hx Family Cardiac Disorders: Yes (CAD/STENTS) Hx Family Respiratory Disorders: Yes (GRANDFATHER) Hx Family Cancer: Yes Hx Family GI Disorders: No Hx Family Endocrine Disorder: Yes Hx Family Neurologic Disorders: Yes (Cerebrovascular accident) Internal Medicine - H&P: Meds Gabapentin [Neurontin] 300 mg PO TID PRN 10/28/17 [History] Insulin Glargine,Hum.rec.anlog [Basaglar Kwikpen U-100] 25 unit SQ HS 10/28/17 [ History] Multivitamin [One Daily Multivitamin] 1 tab PO DAILY 10/28/17 [History] Allopurinol [Zyloprim 300 MG] 450 mg PO DAILY PRN 02/07/18 [History] Metoprolol Succinate [Toprol Xl] 50 mg PO DAILY 02/07/18 [History] Acetaminophen [Tylenol] 650 mg PO Q6HR PRN tablet 02/08/18 [Rx] Insulin DETEMIR [Levemir] 25 unit SQ HS [id number] 02/08/18 [Rx] Insulin LISPRO [HumaLOG] 0 units SQ TIDAC vial 02/08/18 [Rx] OxyCODONE/APAP 5/325 [Percocet 5/325 MG] 2 tab PO Q6HR PRN 5 Days #15 tablet [Rx] Sulfamethoxazole/Trimeth DS [Bactrim DS] 1 each PO BID #6 tablet 02/08/18 [Rx] 3 Allergy/AdvReac Type Severity Reaction Status Date / Time No Known Allergies Allergy Verified 02/09/18 01:48 All Systems PM: review of systems was performed and is negative for pertinent findings except as documented above in the HPI. - Constitutional Vitals: Temp Pulse Resp BP Pulse Ox 98.3 F 84 18 130/87 94 02/09/18 07:15 02/09/18 07:15 02/09/18 07:15 02/09/18 07:15 02/09/18 07:15 Exam: General: Patient is alert, oriented, no acute distress, obese, speaks in full sentences Head: atraumatic, normocephalic, Eye: normal appearance, PERRL, no scleral icterus, no conjunctival injection ENT: mucous membranes moist, normal external ear exam Neck: normal inspection, trachea midline, full ROM, no carotid bruits. Enlarged neck Chest: normal inspection, symmetric chest rise Respiratory: Good respiratory effort. Decreased breath sounds secondary to body habitus, bilateral crackles infrascapularly without wheezing Cardiovascular: Regular rate and rhythm. s1 and s2 No clicks, rubs, gallops, or murmors. Abdomen: Bowel sounds present normoactive x-4 quadrants. Abdomen is soft, nondistended. no Epigastric tenderness. No guarding or rebound. No organomegaly noted, obese musculoskeletal: Spontaneously moving all extremities. Trace edema up to mid calf, no calf tenderness Skin: warm, dry, intact. Neuro: Alert and oriented x4. Sensation light touch intact. Cranial nerves 2- 12 is intact. Not aphasic, no focal deficits Psych: Patient's affect is normal Internal Med - H&P Results - Labs CBC & Chem 7: 02/09/18 05:47 02/09/18 02:00 - EKG Data -: EKG Interpreted by Myself (NSR, borderline LAD, QT 451) - Assessment and plan (1) Acute respiratory failure with hypoxia Current Visit: Yes Status: Acute Assessment and plan: Acute respiratory failure with hypoxia most likely secondary to fluid overload/ pulmonary edema from recent urological procedure (hypotonic solutions) will rule out pulmonary embolism Doubt infectious process as he has no fever or white count or cough. Well score for PE 4.5 Troponin negative, BNP 63 D-dimer 685 ABG obtained shows high AA gradient hypoxemia, AA gradient is 75.4 expected for age is 18.8 Was started on heparin drip in the emergency department, will continue-pharmacy to dose CTPA ordered in the emergency department, patient unable to lay flat due to respiratory distress DVT studies of the lower extremities- ordered Lasix 40 mg IV given in the emergency department- will continue Lasix 40 mg IV BID- watch renal functions currently not in respiratory distress but BiPAP if he develops respiratory distress nasal cannula keep sats >92% Will consider starting antibiotics if he develops fever and leukocytosis Strict intake and output Fluid restriction Echocardiogram CXR: IMPRESSION: Bilateral pulmonary opacities suspicious for pneumonia or edema. Mild cardiomegaly (2) Acute renal failure (ARF) Current Visit: Yes Status: Acute Assessment and plan: Elevated creatinine 1.44 on 02/09 Trending down from 1.54 on 02/08 suspect that its secondary to recent urological procedure (02/07) Patient was started on Lasix for pulmonary edema Watch renal functions closely Strict intake and output Avoid nephrotoxic medicines Qualifiers: Acute renal failure type: unspecified Qualified Code(s): N17.9 - Acute kidney failure, unspecified (3) Complicated urinary tract infection Current Visit: Yes Status: Acute Assessment and plan: urgency, frequency, burning on urination I suspect that this is due to recent stent placement Will get UA Send urine culture if UA is positive Was discharged on Bactrim for 3 days on 02/08 We will start him on ceftriaxone (4) Uncontrolled diabetes mellitus Current Visit: Yes Status: Acute Assessment and plan: A1c 13.4 on 01/29 Well continue home dose long-acting insulin with sliding scale coverage Qualifiers: Diabetes mellitus type: type 2 Glycemic state: with hyperglycemia Qualified Code(s): E11.65 - Type 2 diabetes mellitus with hyperglycemia (5) Hyperlipidemia Current Visit: No Status: Chronic Assessment and plan: By history as per chart review We will send lipid panel Nutrition consult Qualifiers: Hyperlipidemia type: unspecified Qualified Code(s): E78.5 - Hyperlipidemia , unspecified (6) Morbidly obese Current Visit: Yes Status: Acute Assessment and plan: Nutrition consult Was counseled on weight loss and nutrition (7) DVT prophylaxis Current Visit: Yes Status: Acute Assessment and plan: On heparin drip - Time Spent With Patient Total time spent is greater than 50% in coordination of care (as documented) at patient's floor/unit and/or counseling patient:
[2018-02-09 07:47] LABS: ABG Base Excess 1 mEq/L (-2 to 3); ABG HCO3 26 mEq/L (21-27); ABG Oxygen Saturation 95 % (95-98); ABG PCO2 41 mmHg (35-45); ABG PH 7.41 pH Units (7.32-7.45); ABG PO2 73 mmHg (85-104); ABG TCO2 27 mEq/L (20-26)
[2018-02-09] MEDS ORDERED: Naloxone 0.4 MG/ML INJ IVP PRN (08:00)
[2018-02-09] MEDS ORDERED: D5% in Water 1,000 ML IVC PRN (08:03)
[2018-02-09] MEDS ORDERED: Dextrose Gel 15 GM/37.5 ML TUBE PO PRN ×2 (08:03)
[2018-02-09] MEDS ORDERED: *HR* Dextrose 50 % in Water (Syg) 50 ML SYRINGE IVP PRN (08:03)
[2018-02-09 08:59] LABS: Magnesium 1.7 mg/dL (1.6-2.6); Phosphorous 2.8 mg/dL (2.7-4.5)
[2018-02-09] MEDS ORDERED: Bisacodyl 10 MG RECTAL SUPPOSITORY RC PRN (09:34)
[2018-02-09] MEDS: *HR* OxyCODONE/APAP 5/325 TABLET PO PRN ×2 (10:33→20:45)
[2018-02-09] MEDS: cefTRIAXone 2,000 MG in 0.9 % Sodium Chloride Mini Bag 100 ML IVPB SCH (10:36)
[2018-02-09] MEDS: Heparin 25,000 UNIT/500 ML D5W 25,000 UNIT/500 ML BAG IVC SCH ×2 (12:39→13:31)
[2018-02-09] MEDS: Insulin LISPRO 300 UNITS/3 ML VIAL SQ SCH ×3 (12:51→20:48)
[2018-02-09 17:12] LABS: Hematocrit 36.9 % (37.5-50.1); Hemoglobin 12.4 g/dL (12.9-16.9); Mean Corpuscular HGB Conc 33.6 g/dL (31.6-35.5); Mean Corpuscular Hemoglobin 29.1 pg (28.0-33.3); Mean Corpuscular Volume 86.6 fL (83.0-100.0); Mean Platelet Volume 9.8 fL (9.4-12.4); Platelet Count 233 K/mcL (140-400); Red Blood Count 4.26 M/mcL (4.19-5.50); Red Cell Distribution Width 12.3 % (11.5-14.5)
[2018-02-09] MEDS: Furosemide 40 MG/4 ML VIAL IVP SCH (20:45)
[2018-02-09] MEDS: Insulin DETEMIR 100 UNIT/ML X5UNITS SQ SCH (20:45)
[2018-02-09 20:50] LABS: Bilirubin,Urine Negative (Negative); Blood,Urine Large (Negative); Clarity,Urine Turbid (Clear); Color,Urine Red (Yellow); Glucose,Urine (UA) 250 mg/dL (Normal); Ketones,Urine Trace mg/dL (Negative); Leukocyte Esterase,Urine Small (Negative); Nitrite,Urine Negative (Negative); Protein,Urine >=300 mg/dL (Neg-Trace); Specific Gravity,Urine 1.018 (1.010-1.025); Urobilinogen,Urine Normal (Normal)
--- NOTE | 2018-02-09 21:18 | Event Note ---
Date of Encounter: 02/09/18 Time of Encounter: 20:43 Was on 2NE and was consulted by pts. nurse Brigitte RN regarding pts. urine output which looked like Merlot. Pt. had stone extraction from kidney. Pt. was also found to have a positive DVT in the right lower extremity (Gastroc V Partial Thrombus only) according to Doppler report. LLE negative for DVT. Pt. was reporting SOB and pain in back. I asked the pt. if pain was at the procedure site and he stated no that it was generalized back pain. He also stated that he was constipated. Called Dr. Chin to inform him of pts. current urine. Recommendation was to not have No catheter d/t risk for clots and complications overnight. Dr. Chin recommended IVPB Ofirmev 1000 mg Q8HR scheduled and SL oxycodone. 10 mg SL oxycodone Q6HR ordered for severe pain. Miralax also ordered d/t pts. report of constipation and current opioids for pain mgmt. Dr. Chin stated that pt. may need IVC filter placed in the a.m. I appreciate the consult and recommendations as always. Nurse instructed to monitor pt. and output closely overnight as well as BP for hypotension d/t opioids.
[2018-02-09 21:57] LABS: Hematocrit 34.9 % (37.5-50.1); Hemoglobin 11.8 g/dL (12.9-16.9); Mean Corpuscular HGB Conc 33.8 g/dL (31.6-35.5); Mean Corpuscular Hemoglobin 28.9 pg (28.0-33.3); Mean Corpuscular Volume 85.5 fL (83.0-100.0); Mean Platelet Volume 9.8 fL (9.4-12.4); Platelet Count 216 K/mcL (140-400); Red Blood Count 4.08 M/mcL (4.19-5.50); Red Cell Distribution Width 12.3 % (11.5-14.5)
[2018-02-10] MEDS: Acetaminophen IV 1,000 MG/100 ML INFUS..BTL IVPB SCH ×3 (00:19→15:45)
[2018-02-10 02:35] LABS: Basophils % 0.2 %; Eosinophils % 1.4 %; Hematocrit 35.1 % (37.5-50.1); Hemoglobin 11.6 g/dL (12.9-16.9); Immature Granulocytes % 0.2 % (0-4); Lymphocytes % 25.8 %; Mean Corpuscular Hemoglobin 28.6 pg (28.0-33.3); Mean Corpuscular Volume 86.5 fL (83.0-100.0); Mean Platelet Volume 9.9 fL (9.4-12.4); Monocytes % 11.1 %; Platelet Count 221 K/mcL (140-400); Red Blood Count 4.06 M/mcL (4.19-5.50); Red Cell Distribution Width 12.1 % (11.5-14.5); Segmented Neutrophils % 61.3 %
[2018-02-10 02:36] LABS: Eosinophils # 0.1 K/mcL (0.0-0.6); Lymphocytes # 2.4 K/mcL (0.6-4.6); Neutrophils # 5.7 K/mcL (1.6-8.9)
[2018-02-10 02:55] LABS: Calcium 9.1 mg/dL (8.6-10.3); Potassium 3.8 mEq/L (3.5-5.1)
[2018-02-10] MEDS: OXYCODONE Oral CONC 10 MG/0.5 ML ORAL.SYG SL PRN ×4 (03:09→20:59)
[2018-02-10] MEDS: *HR* Heparin 5,000 UNIT/ML VIAL IVP PRN ×2 (03:21→20:29)
[2018-02-10] MEDS: Heparin 25,000 UNIT/500 ML D5W 25,000 UNIT/500 ML BAG IVC SCH ×2 (03:32→16:08)
[2018-02-10 05:58] LABS: Hematocrit 35.3 % (37.5-50.1); Hemoglobin 11.7 g/dL (12.9-16.9); Mean Corpuscular HGB Conc 33.1 g/dL (31.6-35.5); Mean Corpuscular Hemoglobin 28.6 pg (28.0-33.3); Mean Corpuscular Volume 86.3 fL (83.0-100.0); Mean Platelet Volume 9.9 fL (9.4-12.4); Platelet Count 218 K/mcL (140-400); Red Blood Count 4.09 M/mcL (4.19-5.50); Red Cell Distribution Width 12.2 % (11.5-14.5)
--- NOTE | 2018-02-10 07:12 | Urology Progress Note ---
Date of Encounter: 02/10/18 Time of Encounter: 07:10 - Assessment and Plan (1) Hematuria Current Visit: Yes Status: Acute Assessment and plan: I stopped the every 4 hour CBC lab check as his hemoglobin is stable. He states that the hematuria is dark but there are no clots and he is having no difficulty voiding. The hematuria is expected since he started the heparin drip especially with his recent surgery and ureteral stent in place but I feel that the heparin drip can continue as long as things do not worsen. He does not necessarily require a Lena filter or discontinuation of the heparin drip at this time. Urology will follow the patient closely. In addition, it is not clear whether the patient has had a pulmonary embolism as no definitive testing has been completed. He did have significant shortness of breath on admission. I will defer this management to the hospitalist service. May need to consider whether a pulmonary embolism is present prior to considering Etta filter. No surgical intervention from the urology service is required at this time. We will hold off on placing No catheter as he is voiding well. Qualifiers: Hematuria type: gross Qualified Code(s): R31.0 - Gross hematuria Progress Note Subjective: hematuria Narrative: pt s/p PCNL saturday. did well at admission but developed SOB at home which worsened late into . presented to ER and admitted. pt has lower ext DVT but has not been diagnosed with a pulmonary embolism. He was unable to lay down for the chest CT scan because of shortness of breath. Hematuria worsen significantly after starting heparin drip Objective Initial Vital Signs Temp Pulse Resp BP Pulse Ox 98.7 F 98 24 150/82 93 02/09/18 01:29 02/09/18 01:29 02/09/18 01:29 02/09/18 01:29 02/09/18 01:29 - Additional Exam Some tape reaction around PCNL site but overall the area is dry and not bleeding or draining - Labs 02/10/18 05:32 02/10/18 02:12 Diabetes panel 02/10/18 Range/Units 02:12 Sodium 135 L (136-145) mEq/L Potassium 3.8 (3.5-5.1) mEq/L Chloride 100 (98-107) mEq/L Carbon Dioxide 25 (23-29) mEq/L BUN 24 H (6-20) mg/dL Creatinine 1.53 H (0.70-1.30) mg/dL Glucose 233 H (70-105) mg/dL Calcium 9.1 (8.6-10.3) mg/dL Triglycerides 219 H (< 150) mg/dL HDL Cholesterol 43 (40-59) mg/dL Calcium panel 02/09/18 02/10/18 Range/Units 08:29 02:12 Calcium 9.1 (8.6-10.3) mg/dL Phosphorus 2.8 (2.7-4.5) mg/dL Pituitary panel 02/10/18 Range/Units 02:12 Sodium 135 L (136-145) mEq/L Potassium 3.8 (3.5-5.1) mEq/L Chloride 100 (98-107) mEq/L Carbon Dioxide 25 (23-29) mEq/L BUN 24 H (6-20) mg/dL Creatinine 1.53 H (0.70-1.30) mg/dL Glucose 233 H (70-105) mg/dL Calcium 9.1 (8.6-10.3) mg/dL Adrenal panel 02/10/18 Range/Units 02:12 Sodium 135 L (136-145) mEq/L Potassium 3.8 (3.5-5.1) mEq/L Chloride 100 (98-107) mEq/L Carbon Dioxide 25 (23-29) mEq/L BUN 24 H (6-20) mg/dL Creatinine 1.53 H (0.70-1.30) mg/dL Glucose 233 H (70-105) mg/dL Calcium 9.1 (8.6-10.3) mg/dL Consult Discharge Plan - Plan Referrals: Nilam Del Cid, ROSENDA [Primary Care Provider] -
[2018-02-10] MEDS: Furosemide 40 MG/4 ML VIAL IVP SCH ×2 (08:45→15:30)
[2018-02-10] MEDS: Metoprolol XL (24 HR) Succ 50 MG TAB.ER.24H PO SCH (08:45)
[2018-02-10] MEDS: Insulin LISPRO 300 UNITS/3 ML VIAL SQ SCH ×4 (08:46→20:55)
[2018-02-10] MEDS: cefTRIAXone 2,000 MG in 0.9 % Sodium Chloride Mini Bag 100 ML IVPB SCH (09:37)
--- NOTE | 2018-02-10 11:23 | Electrocardiograph Report ---
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
[2018-02-10] MEDS ORDERED: Isovue-370 500 ML INFUS..BTL IV ONE (11:42)
[2018-02-10] MEDS ORDERED: *HR* OxyCODONE/APAP 5/325 TABLET PO PRN (11:43)
[2018-02-10] MEDS ORDERED: Ipratropium/Albuterol Neb 3 ML IH PRN (11:43)
--- NOTE | 2018-02-10 11:51 | Internal Med Progress Note ---
Hospitalist Progress Note - Encounter Date of Encounter: 02/10/18 Time of Encounter: 11:48 - Subjective Interval History: Gen NAD, - Exam Vitals: Temp Pulse Resp BP Pulse Ox 97.3 F L 82 16 129/69 95 02/10/18 06:29 02/10/18 06:29 02/10/18 06:29 02/10/18 06:29 02/10/18 06:29 Exam: General: Patient is alert, oriented, no acute distress, obese, speaks in full sentences Head: atraumatic, normocephalic, Eye: normal appearance, PERRL, no scleral icterus, no conjunctival injection ENT: mucous membranes moist, normal external ear exam Neck: normal inspection, trachea midline, full ROM, no carotid bruits. No JVD Chest: normal inspection, symmetric chest rise Respiratory: Good respiratory effort. Decreased breath sounds secondary to body habitus, bilateral crackles infrascapularly without wheezing Cardiovascular: Regular rate and rhythm. s1 and s2 No clicks, rubs, gallops, or murmors. Abdomen: Bowel sounds present normoactive x-4 quadrants. Abdomen is soft, nondistended. no Epigastric tenderness. No guarding or rebound. No organomegaly noted, obese musculoskeletal: Trace edema up to mid calf, no calf tenderness Skin: warm, dry, intact. Neuro: Alert and oriented x4. Sensation light touch intact. Cranial nerves 2- 12 is intact. Not aphasic, no focal deficits - Assessment and Plan (1) Acute respiratory failure with hypoxia Current Visit: Yes Status: Acute Assessment and Plan: Acute respiratory failure with hypoxia most likely secondary to fluid overload/ pulmonary edema from recent urological procedure (hypotonic solutions) will rule out pulmonary embolism Doubt infectious process as he has no fever or white count or cough. Well score for PE 4.5 Troponin negative, BNP 63 D-dimer 685 ABG obtained shows high AA gradient hypoxemia, AA gradient is 75.4 expected for age is 18.8 Was started on heparin drip in the emergency department, will continue-pharmacy to dose CTPA ordered in the emergency department, patient unable to lay flat due to respiratory distress DVT studies of the lower extremities- ordered Lasix 40 mg IV given in the emergency department- will continue Lasix 40 mg IV BID- watch renal functions currently not in respiratory distress but BiPAP if he develops respiratory distress nasal cannula keep sats >92% Will consider starting antibiotics if he develops fever and leukocytosis Strict intake and output Fluid restriction Echocardiogram CXR: IMPRESSION: Bilateral pulmonary opacities suspicious for pneumonia or edema. Mild cardiomegaly - Obtaining CTA stat - Continue Heparin drip for now. - Continue Lasix, and Rocephin. (2) Hyperlipidemia Current Visit: No Status: Chronic Assessment and Plan: By history as per chart review We will send lipid panel Nutrition consult (3) Uncontrolled diabetes mellitus Current Visit: Yes Status: Acute Assessment and Plan: A1c 13.4 on 01/29 Well continue home dose long-acting insulin with sliding scale coverage (4) Morbidly obese Current Visit: Yes Status: Acute Assessment and Plan: Nutrition consult Was counseled on weight loss and nutrition (5) Complicated urinary tract infection Current Visit: Yes Status: Acute Assessment and Plan: urgency, frequency, burning on urination I suspect that this is due to recent stent placement Will get UA Send urine culture if UA is positive Was discharged on Bactrim for 3 days on 02/08 - discontinue Continue Rocephin (6) Acute renal failure (ARF) Current Visit: Yes Status: Acute Assessment and Plan: Creatinine fluctuates from 1.4 to 1.5 on admission. 10 days ago it was 1.06 suspect that its secondary to recent urological procedure (02/07) Patient was started on Lasix for pulmonary edema Watch renal functions closely Strict intake and output Avoid nephrotoxic medicines (7) Hematuria Current Visit: Yes Status: Acute Assessment and Plan: Complicated situation as patient needs heparin drip right now until PE is ruled out. He also found to have a right lower extremity DVT. Will need to continue heparin drip for now and monitor CBC. If heparin could be discontinued, we will do so but the benefits of heparin outweigh the risks at this point. (8) DVT (deep venous thrombosis) Current Visit: Yes Status: Acute Assessment and Plan: Ultrasound of right lower extremity shows partially compressible gastrocnemius vein. This could be chronic DVT. Patient currently on heparin drip for acute respiratory failure that cannot excluse PE currently. Continue heparin drip for now. He has significant hematuria and at this point I am unsure what his anticoagulation status will be after further testing is done. Will consult Vascular Surgery for recommendations on this and potentially if he is a candidate for IVC filter placement. - Time Spent with Patient Total time spent is greater than 50% in coordination of care (as documented) at patient's floor/unit and/or counseling patient: Internal Medicine: Result - Labs CBC & Chem 7: 02/10/18 05:32 02/10/18 02:12 Labs: Short CBC 02/09/18 02/09/18 02/10/18 Range/Units 16:59 21:38 02:12 WBC 9.6 10.3 9.3 (4.3-11.1) K/mcL Hgb 12.4 L 11.8 L 11.6 L (12.9-16.9) g/dL Hct 36.9 L 34.9 L 35.1 L (37.5-50.1) % Plt Count 233 216 221 (140-400) K/mcL Neutrophils # 5.7 (1.6-8.9) K/mcL 02/10/18 Range/Units 05:32 WBC 9.3 (4.3-11.1) K/mcL Hgb 11.7 L (12.9-16.9) g/dL Hct 35.3 L (37.5-50.1) % Plt Count 218 (140-400) K/mcL Neutrophils # (1.6-8.9) K/mcL BMP 02/10/18 02:12 Sodium 135 L Potassium 3.8 Chloride 100 Carbon Dioxide 25 BUN 24 H Creatinine 1.53 H Glucose 233 H Calcium 9.1 Urine 02/09/18 Range/Units 20:20 Urine Color Red A (Yellow) Urine Clarity Turbid A (Clear) Urine pH 6.0 (5.0-8.0) pH Units Ur Specific [place]wl 1.018 (1.010-1.025) Urine Protein >=300 H (Neg-Trace) mg/dL Urine Glucose (UA) 250 H (Normal) mg/dL - ABG Interpretation ABG results: ABG ABG pH 7.41 pH Units (7.32-7.45) 02/09/18 07:43 ABG pCO2 41 mmHg (35-45) 02/09/18 07:43 ABG pO2 73 mmHg (85-104) L 02/09/18 07:43 ABG O2 Saturation 95 % (95-98) 02/09/18 07:43 PT/INR, D-dimer PT 12.5 Seconds (9.4-12.1) H 02/09/18 05:47 D-Dimer 685 ng/mLFEU (0-500) H 02/09/18 05:47 - Impressions Impressions Echocardiogram 02/10/18 07:00 Impressions: LVEF 60%. Not all LV wall segments were well visualized. Indeterminate diastolic function. Normal right ventricular structure and function. No significant valvular dysfunction. Consult Discharge Plan - Plan Referrals: Nilam Del Cid, NICKING MACHINE OPERATOR [Primary Care Provider] - 02/17/18 10:35 am (2) Hyperlipidemia Qualifiers: Hyperlipidemia type: unspecified Qualified Code(s): E78.5 - Hyperlipidemia, unspecified (3) Uncontrolled diabetes mellitus Qualifiers: Diabetes mellitus type: type 2 Glycemic state: with hyperglycemia Qualified Code(s): E11.65 - Type 2 diabetes mellitus with hyperglycemia (6) Acute renal failure (ARF) Qualifiers: Acute renal failure type: unspecified Qualified Code(s): N17.9 - Acute kidney failure, unspecified (7) Hematuria Qualifiers: Hematuria type: gross Qualified Code(s): R31.0 - Gross hematuria (8) DVT (deep venous thrombosis) Qualifiers: DVT location: lower extremity Affected thrombotic vein of extremity: unspecified lower extremity distal vein Chronicity: unspecified Laterality: right Qualified Code(s): I82.4Z1 - Acute embolism and thrombosis of unspecified deep veins of right distal lower extremity
--- NOTE | 2018-02-10 15:26 | Event Note ---
Date of Encounter: 02/10/18 Time of Encounter: 15:24 Patient seen and examined. Chart reviewed. Currently on heparin drip for DVT. CT angio of the chest was ordered and pending. Urine is red wine colored, but he is voiding well. No clots. Breathing improved. I will follow along. Monitor color of urine and H&H. Appreciate hospitalist support.
[2018-02-10] MEDS ORDERED: Acetaminophen 325 MG TABLET PO PRN (16:21)
--- NOTE | 2018-02-10 18:07 | Vascular/Endovasc Consult Note ---
Date of Encounter: 02/10/18 Time of Encounter: 16:30 Assessment and Plan (1) DVT (deep venous thrombosis) Current Visit: Yes Status: Chronic The pathophysiology and natural history of venous thromboembolism was discussed the patient and all questions were answered. His recent duplex reveals what appears to be a chronic right gastrocnemius deep vein thrombosis. He currently has limited hematuria on heparin drip. Urology is not concerned about the degree of hematuria. He is scheduled for a CT scan of the chest to evaluate for pulmonary embolus. If the patient is unable to tolerate intravenous or oral anticoagulation he may be started on aspirin and/or Plavix given the chronicity of his deep vein thrombosis. There is no indication at this time for placement of an inferior vena cava filter. 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 Qualifiers: Hyperlipidemia type: unspecified Qualified Code(s): E78.5 - Hyperlipidemia , unspecified (3) Hematuria Current Visit: Yes Status: Acute Qualifiers: Hematuria type: gross Qualified Code(s): R31.0 - Gross hematuria (4) Diabetes Current Visit: No Status: Chronic Qualifiers: Diabetes mellitus type: type 2 Diabetes mellitus nursing home insulin use: without nursing home use Diabetes mellitus complication status: with kidney complications Diabetes mellitus complication detail: with nephropathy Qualified Code(s): E11.21 - Type 2 diabetes mellitus with diabetic nephropathy (5) Hypertension Current Visit: No Status: Chronic Qualifiers: Hypertension type: essential hypertension Qualified Code(s): I10 - Essential (primary) hypertension - History of Present Illness Consult date: 02/10/18 Requesting physician: Jak Sullivan Consult reason: Deep vein thrombosis Chief complaint: DVT History of present illness: Mr. Cavanaugh is a 57 year old male with a history of diabetes, hyperlipidemia, hypertension and chronic kidney disease. The patient recently underwent a nephrolithotomy and developed respiratory failure and acute renal failure. He was admitted to [facility]. The patient underwent a venous duplex of his lower extremity is found have a right tibial DVT. He was started on intravenous heparin. He developed some hematuria and was seen by urology. Urology felt that there was no need to discontinue his heparin drip at the time. Vascular surgery was counseled for further evaluation regarding his deep vein thrombosis and hematuria. At the time of exam the patient denies any fevers or chills. He denies any chest pain or shortness of breath. He denies any leg pain or tenderness Past Med Surg Social Fam HX - Past Medical History Medical history: arthritis, cancer, diabetes, hyperlipidemia, hypertension, kidney stones, renal disease Additional medical history: skin CA,. lung nodules,. bronchitis Psychiatric history: no psych history - Past Surgical History Surgical History: orthopedic, other Additional surgical history: BACK SURGERY,. Skin CA removed. thumb surgery,. kidney stone - Social History Smoking Status: Never smoker Smokeless Tobacco Status: No Alcohol use: none Drug use: none - Family History Father Adopted: No Hx Family Cardiac Disorders: Yes Hx Family Neurologic Disorders: Yes (Cerebrovascular accident) Mother Adopted: No Living Status: Still Living Hx Family Cardiac Disorders: Yes Hx Family Respiratory Disorders: Yes (GRANDFATHER) Hx Family Cancer: Yes Hx Family GI Disorders: No Hx Family Endocrine Disorder: Yes Hx Family Neurologic Disorders: Yes (Cerebrovascular accident) Medications and Allergies Insulin Glargine,Hum.rec.anlog [Basaglar Kwikpen U-100] 34 unit SQ HS 10/28/17 [ History] Multivitamin [One Daily Multivitamin] 1 tab PO DAILY 10/28/17 [History] Metoprolol Succinate [Toprol Xl] 50 mg PO DAILY 02/07/18 [History] OxyCODONE/APAP 5/325 [Percocet 5/325 MG] 2 tab PO Q6HR PRN 5 Days #15 tablet [Rx] Sulfamethoxazole/Trimeth DS [Bactrim DS] 1 each PO BID #6 tablet 02/08/18 [Rx] Ipratropium/Albuterol Neb [Duoneb] 3 ml IH Q6HR PRN 02/10/18 [History] 3 Allergy/AdvReac Type Severity Reaction Status Date / Time No Known Allergies Allergy Verified 02/09/18 01:48 All Systems Review: The remainder of the systems were reviewed and are negative - Constitutional Constitutional: no chills, no fever(s) Exam Vital Signs, Last 4 Hours Temp Pulse Resp BP Pulse Ox 02/10/18 15:36 97.3 F L 78 15 121/74 94 General: Present: Conversant, No Apparent Distress HEENT: Present: Pupils equal Neck: Absent: JVD, Lymphadenopathy, Left Carotid bruit, Right Carotid bruit Cardiac: Present: Reg Rate and Rhythm, Normal S1 and S2 Lungs: Present: Normal Breath Sounds, No Wheeze, Rales, Rhonchi Neuro: Present: Alert and responsive, No focal deficits noted, Motor nerves grossly intact, Sensory nerves grossly intact Abdomen: Present: Soft, Non-tender. Absent: Masses Vascular: Present: Normal capillary refill, Pulse, normal (Pedal signals present bilaterally). Absent: Cyanosis, Edema Skin: Present: No rashes noted on visualized skin Consult Discharge Plan - Plan Referrals: Nilam Del Cid CNP [Primary Care Provider] - 02/17/18 10:35 am
[2018-02-10] MEDS: Insulin DETEMIR 100 UNIT/ML X5UNITS SQ SCH (20:55)
[2018-02-11] MEDS: OXYCODONE Oral CONC 10 MG/0.5 ML ORAL.SYG SL PRN ×4 (03:06→21:29)
[2018-02-11] MEDS: *HR* OxyCODONE/APAP 5/325 TABLET PO PRN ×2 (05:07→17:25)
[2018-02-11] MEDS: Heparin 25,000 UNIT/500 ML D5W 25,000 UNIT/500 ML BAG IVC SCH ×2 (05:09→17:48)
--- NOTE | 2018-02-11 07:53 | Internal Med Progress Note ---
Hospitalist Progress Note - Encounter Date of Encounter: 02/11/18 Time of Encounter: 13:59 - Subjective Interval History: Gen NAD, - Exam Vitals: Temp Pulse Resp BP Pulse Ox 97.4 F L 77 18 165/86 97 02/11/18 07:28 02/11/18 07:28 02/11/18 07:28 02/11/18 07:28 02/11/18 07:28 Exam: General: Patient is alert, oriented, no acute distress, obese, speaks in full sentences Head: atraumatic, normocephalic, Eye: normal appearance, PERRL, no scleral icterus, no conjunctival injection ENT: mucous membranes moist, normal external ear exam Neck: normal inspection, trachea midline, full ROM, no carotid bruits. No JVD Chest: normal inspection, symmetric chest rise Respiratory: Good respiratory effort. Decreased breath sounds secondary to body habitus, bilateral crackles infrascapularly without wheezing Cardiovascular: Regular rate and rhythm. s1 and s2 No clicks, rubs, gallops, or murmors. Abdomen: Bowel sounds present normoactive x-4 quadrants. Abdomen is soft, nondistended. no Epigastric tenderness. No guarding or rebound. No organomegaly noted, obese musculoskeletal: Trace edema up to mid calf, no calf tenderness Skin: warm, dry, intact. Neuro: Alert and oriented x4. Sensation light touch intact. Cranial nerves 2- 12 is intact. Not aphasic, no focal deficits - Assessment and Plan (1) Acute respiratory failure with hypoxia Current Visit: Yes Status: Acute Assessment and Plan: Acute respiratory failure with hypoxia most likely secondary to fluid overload/ pulmonary edema from recent urological procedure (hypotonic solutions) will rule out pulmonary embolism Doubt infectious process as he has no fever or white count or cough. Well score for PE 4.5 Troponin negative, BNP 63 D-dimer 685 ABG obtained shows high AA gradient hypoxemia, AA gradient is 75.4 expected for age is 18.8 Was started on heparin drip in the emergency department, will continue-pharmacy to dose CTPA ordered in the emergency department, patient unable to lay flat due to respiratory distress DVT studies of the lower extremities- showed + partial chronic DVT CTA: negative for PE, showed pneumonia, moderate right pleural effusion, small airspace consolidation possible. Lasix 40 mg IV given in the emergency department- will continue Lasix 40 mg IV BID- watch renal functions currently not in respiratory distress but BiPAP if he develops respiratory distress nasal cannula keep sats >92% Strict intake and output Fluid restriction - Continue Lasix, and Rocephin. Add azithromycin for atypical coverage. MRSA screen. - Continue IV lasix - Transition from Heparin to Eliquis (paid for by insurance $45/month) if patient willing to pay this. (2) Hyperlipidemia Current Visit: No Status: Chronic Assessment and Plan: By history as per chart review We will send lipid panel Nutrition consult (3) Uncontrolled diabetes mellitus Current Visit: Yes Status: Acute Assessment and Plan: A1c 13.4 on 01/29 Well continue home dose long-acting insulin with sliding scale coverage (4) Morbidly obese Current Visit: Yes Status: Acute Assessment and Plan: Nutrition consult Was counseled on weight loss and nutrition (5) Complicated urinary tract infection Current Visit: Yes Status: Acute Assessment and Plan: urgency, frequency, burning on urination I suspect that this is due to recent stent placement Will get UA Send urine culture if UA is positive Was discharged on Bactrim for 3 days on 02/08 - discontinue Continue Rocephin (6) Acute renal failure (ARF) Current Visit: Yes Status: Acute Assessment and Plan: Creatinine fluctuates from 1.4 to 1.5 on admission. 10 days ago it was 1.06 suspect that its secondary to recent urological procedure (02/07) Patient was started on Lasix for pulmonary edema Watch renal functions closely Strict intake and output Avoid nephrotoxic medicines (7) Hematuria Current Visit: Yes Status: Acute Assessment and Plan: Complicated situation as patient needs heparin drip right now until PE is ruled out. He also found to have a right lower extremity DVT. Will need to continue heparin drip for now and monitor CBC. If heparin could be discontinued, we will do so but the benefits of heparin outweigh the risks at this point. 02/11 Hematuria improving. Okay to continue anticoagulation and monitor. (8) DVT (deep venous thrombosis) Current Visit: Yes Status: Chronic Assessment and Plan: Ultrasound of right lower extremity shows partially compressible gastrocnemius vein. This could be chronic DVT. Patient currently on heparin drip for acute respiratory failure that cannot excluse PE currently. Continue heparin drip for now. He has significant hematuria and at this point I am unsure what his anticoagulation status will be after further testing is done. Vascular Surgery consult and pt would not benefit from IVC filter His hematuria is improving and currently on heparin, Will transition to NOAC pending insurance pricing. - Time Spent with Patient Total time spent is greater than 50% in coordination of care (as documented) at patient's floor/unit and/or counseling patient: Internal Medicine: Result - Labs CBC & Chem 7: 02/11/18 08:26 02/11/18 08:26 - ABG Interpretation ABG results: ABG ABG pH 7.41 pH Units (7.32-7.45) 02/09/18 07:43 ABG pCO2 41 mmHg (35-45) 02/09/18 07:43 ABG pO2 73 mmHg (85-104) L 02/09/18 07:43 ABG O2 Saturation 95 % (95-98) 02/09/18 07:43 PT/INR, D-dimer PT 12.5 Seconds (9.4-12.1) H 02/09/18 05:47 D-Dimer 685 ng/mLFEU (0-500) H 02/09/18 05:47 Consult Discharge Plan - Plan Referrals: Nilam Del Cid, ROSENDA [Primary Care Provider] - 02/17/18 10:35 am Prescriptions: Apixaban [Eliquis] 5 mg PO DAILY #74 tablet (2) Hyperlipidemia Qualifiers: Hyperlipidemia type: unspecified Qualified Code(s): E78.5 - Hyperlipidemia, unspecified (3) Uncontrolled diabetes mellitus Qualifiers: Diabetes mellitus type: type 2 Glycemic state: with hyperglycemia Qualified Code(s): E11.65 - Type 2 diabetes mellitus with hyperglycemia (6) Acute renal failure (ARF) Qualifiers: Acute renal failure type: unspecified Qualified Code(s): N17.9 - Acute kidney failure, unspecified (7) Hematuria Qualifiers: Hematuria type: gross Qualified Code(s): R31.0 - Gross hematuria (8) DVT (deep venous thrombosis) Qualifiers: DVT location: lower extremity Affected thrombotic vein of extremity: tibial Chronicity: chronic Laterality: right Qualified Code(s): 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
--- NOTE | 2018-02-11 08:05 | Urology Progress Note ---
Date of Encounter: 02/11/18 Time of Encounter: 07:35 - Assessment and Plan (1) Hematuria Current Visit: Yes Status: Acute Assessment and plan: Patient is a 57 year old male who presents with a history of hematuria following heparin anticoagulation for right lower extremity deep vein thrombosis. Patient is 4 days status post right percutaneous nephrolithotomy, right antegrade nephrostogram, right nephrostomy tube placement. Nephrostomy site is well-healed nondraining. Urine seems to be improving as it is now a transparent tea color. We will continue to collect urine and follow patient. Qualifiers: Hematuria type: gross Qualified Code(s): R31.0 - Gross hematuria Progress Note Subjective: no new complaints Narrative: Patient is a 57-year-old male who is 4 days status post right PCNL. Patient developed deep vein thrombosis of right lower extremity and was readmitted to the hospital 2 days ago. Patient was placed on heparin drip and subsequently developed worsening hematuria. Urine is now clearing and appears to be transparent tea-colored. Patient was seen and examined sitting upright in bed in no apparent distress. Patient reports right nephrostomy site is well-healed and nondraining. Patient denies chest pain or dyspnea. Objective Initial Vital Signs Temp Pulse Resp BP Pulse Ox 98.7 F 98 24 150/82 93 02/09/18 01:29 02/09/18 01:29 02/09/18 01:29 02/09/18 01:29 02/09/18 01:29 - General physical appearance Present: well developed, no distress, no pain - Respiratory Present: normal expansion, normal respiratory effort - Abdomen Present: soft, non tender - Genitourinary Urine Appearance: Present: Hematuria (Transparent tea colored) - Integumentary Present: no rash, no abnormal pigmentation - Musculoskeletal Present: normal posture - Psychiatric Present: oriented to time, oriented to person, oriented to place, speech is normal, memory intact - Labs 02/10/18 05:32 02/10/18 02:12 Consult Discharge Plan - Plan Referrals: Nilam Del Cid CNP [Primary Care Provider] - 02/17/18 10:35 am
[2018-02-11 08:44] LABS: Basophils % 0.4 %; Eosinophils # 0.4 K/mcL (0.0-0.6); Eosinophils % 4.5 %; Hematocrit 33.5 % (37.5-50.1); Hemoglobin 11.5 g/dL (12.9-16.9); Immature Granulocytes % 0.4 % (0-4); Lymphocytes # 2.6 K/mcL (0.6-4.6); Lymphocytes % 27.3 %; Mean Corpuscular HGB Conc 34.3 g/dL (31.6-35.5); Mean Corpuscular Hemoglobin 29.1 pg (28.0-33.3); Mean Corpuscular Volume 84.8 fL (83.0-100.0); Mean Platelet Volume 9.8 fL (9.4-12.4); Monocytes # 0.8 K/mcL (0.0-1.3); Monocytes % 8.7 %; Neutrophils # 5.5 K/mcL (1.6-8.9); Platelet Count 252 K/mcL (140-400); Red Blood Count 3.95 M/mcL (4.19-5.50); Red Cell Distribution Width 12.1 % (11.5-14.5); Segmented Neutrophils % 58.7 %
[2018-02-11] MEDS: Multivit/Ca/Min/Fe/FA 1 TAB TABLET PO SCH (08:57)
[2018-02-11] MEDS: Furosemide 40 MG/4 ML VIAL IVP SCH ×2 (08:57→17:26)
[2018-02-11] MEDS: Metoprolol XL (24 HR) Succ 50 MG TAB.ER.24H PO SCH (08:57)
[2018-02-11] MEDS: Insulin LISPRO 300 UNITS/3 ML VIAL SQ SCH ×4 (08:58→21:28)
[2018-02-11] MEDS: cefTRIAXone 2,000 MG in 0.9 % Sodium Chloride Mini Bag 100 ML IVPB SCH (08:59)
[2018-02-11 09:03] LABS: BUN/Creatinine Ratio 22 (6-26); Blood Urea Nitrogen 31 mg/dL (6-20); Calcium 9.4 mg/dL (8.6-10.3); Carbon Dioxide 26 mEq/L (23-29); Chloride 97 mEq/L (98-107); Glucose 264 mg/dL (70-105); Osmolality,Calculated 292 (280-300); Potassium 3.8 mEq/L (3.5-5.1); Sodium 133 mEq/L (136-145); eGFR For Non-African Americans 50 (> 60)
[2018-02-11] MEDS: Azithromycin 500 MG in D5% in Water 250 ML IVPB SCH (13:44)
[2018-02-11] MEDS: *HR* Heparin 5,000 UNIT/ML VIAL IVP PRN (19:23)
[2018-02-11] MEDS: Insulin DETEMIR 100 UNIT/ML X5UNITS SQ SCH (21:28)
[2018-02-12 01:35] LABS: Basophils % 0.3 %; Eosinophils # 0.5 K/mcL (0.0-0.6); Eosinophils % 3.4 %; Hematocrit 36.8 % (37.5-50.1); Hemoglobin 12.5 g/dL (12.9-16.9); Immature Granulocytes % 0.5 % (0-4); Lymphocytes % 21.9 %; Mean Corpuscular Hemoglobin 29.1 pg (28.0-33.3); Mean Corpuscular Volume 85.8 fL (83.0-100.0); Mean Platelet Volume 9.7 fL (9.4-12.4); Monocytes # 1.1 K/mcL (0.0-1.3); Monocytes % 8.1 %; Neutrophils # 8.8 K/mcL (1.6-8.9); Platelet Count 316 K/mcL (140-400); Red Blood Count 4.29 M/mcL (4.19-5.50); Segmented Neutrophils % 65.8 %
[2018-02-12 01:55] LABS: BUN/Creatinine Ratio 25 (6-26); Blood Urea Nitrogen 33 mg/dL (6-20); Calcium 9.8 mg/dL (8.6-10.3); Carbon Dioxide 26 mEq/L (23-29); Chloride 97 mEq/L (98-107); Glucose 260 mg/dL (70-105); Osmolality,Calculated 296 (280-300); Potassium 4.1 mEq/L (3.5-5.1); Sodium 135 mEq/L (136-145); eGFR For Non-African Americans 56 (> 60)
[2018-02-12] MEDS: OXYCODONE Oral CONC 10 MG/0.5 ML ORAL.SYG SL PRN ×2 (03:51→20:37)
[2018-02-12] MEDS: Heparin 25,000 UNIT/500 ML D5W 25,000 UNIT/500 ML BAG IVC SCH (04:59)
--- NOTE | 2018-02-12 06:39 | Vascular/Endovas Progress Note ---
Date of Encounter: 02/12/18 Time of Encounter: 17:15 - Assessment and plan (1) DVT (deep venous thrombosis) Current Visit: Yes Status: Chronic The patient is a chronic right gastrocnemius vein deep vein thrombosis. His CT revealed no evidence of pulmonary embolus. The patient may be transitioned to oral anticoagulation at this time. Recommend repeat venous duplex in 3 months. Vascular surgery will sign off on this patient. Please reconsult if further issues arise. 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 He denies any increased leg pain or swelling. Vital Signs, Last 4 Hours Temp Pulse Resp BP Pulse Ox 02/12/18 04:00 98.3 F 74 16 151/77 90 - Physical Examination General: Present: Conversant, No Apparent Distress Cardiac: Present: Reg Rate and Rhythm Lungs: Present: Normal Breath Sounds Neuro: Present: Alert and responsive, No focal deficits noted Vascular: Present: Normal capillary refill, Edema (Trace edema). Absent: Cyanosis Abdomen: Present: Soft, Non-tender Skin: Present: No rashes noted on visualized skin Results 02/12/18 01:24 02/12/18 01:24 Lab Results, Last 24 hours 02/11/18 02/11/18 02/12/18 08:26 08:26 01:24 WBC 9.4 13.4 H Hgb 11.5 L 12.5 L Hct 33.5 L 36.8 L Plt Count 252 316 Sodium 133 L Potassium 3.8 Chloride 97 L Carbon Dioxide 26 BUN 31 H Creatinine 1.44 H Glucose 264 H Calcium 9.4 02/12/18 01:24 WBC Hgb Hct Plt Count Sodium 135 L Potassium 4.1 Chloride 97 L Carbon Dioxide 26 BUN 33 H Creatinine 1.31 H Glucose 260 H Calcium 9.8 - Imaging / Other Tests CT/CTA: report reviewed Consult Discharge Plan - Plan Referrals: Nilam Del Cid CNP [Primary Care Provider] - 02/17/18 10:35 am Prescriptions: Apixaban [Eliquis] 5 mg PO DAILY #74 tablet
--- NOTE | 2018-02-12 08:07 | Urology Progress Note ---
Date of Encounter: 02/12/18 Time of Encounter: 07:35 - Assessment and Plan (1) Hematuria Current Visit: Yes Status: Acute Assessment and plan: Patient is a 57 year old male who presents with a history of hematuria following heparin anticoagulation for right lower extremity deep vein thrombosis. Patient is 5 days status post right percutaneous nephrolithotomy, right antegrade nephrostogram, right nephrostomy tube placement. Nephrostomy site is well-healed nondraining. Urine still transparent tea color. H&H stabilized. Counseled patient that urine may not clear for several days to weeks following anticoagulation. Reassured patient there is no bright red blood or clots visualized. Patient will continue anticoagulation as directed by cardiovascular team. We will continue to collect urine and follow patient. Qualifiers: Hematuria type: gross Qualified Code(s): R31.0 - Gross hematuria Progress Note Subjective: no new complaints, hematuria Narrative: POD #5. Patient seen and examined sitting upright in chair in no apparent distress. Pain is well controlled. Patient is voiding without difficulty and tolerating normal diet. Denies significant pain, fever, chills, chest pain, dyspnea or calf pain. Urine remains tea-colored without increased sediment or clots. Objective Initial Vital Signs Temp Pulse Resp BP Pulse Ox 98.7 F 98 24 150/82 93 02/09/18 01:29 02/09/18 01:29 02/09/18 01:29 02/09/18 01:29 02/09/18 01:29 - General physical appearance Present: no distress, no pain - Respiratory Present: normal expansion - Abdomen Present: soft, non tender - Genitourinary Urine Appearance: Present: Hematuria (transparent tea color ) - Integumentary Present: no rash, no abnormal pigmentation - Musculoskeletal Present: normal posture - Psychiatric Present: oriented to time, oriented to person, oriented to place, speech is normal, memory intact - Labs 02/12/18 01:24 02/12/18 01:24 Diabetes panel 02/11/18 02/12/18 Range/Units 08:26 01:24 Sodium 133 L 135 L (136-145) mEq/L Potassium 3.8 4.1 (3.5-5.1) mEq/L Chloride 97 L 97 L (98-107) mEq/L Carbon Dioxide 26 26 (23-29) mEq/L BUN 31 H 33 H (6-20) mg/dL Creatinine 1.44 H 1.31 H (0.70-1.30) mg/dL Glucose 264 H 260 H (70-105) mg/dL Calcium 9.4 9.8 (8.6-10.3) mg/dL Calcium panel 02/11/18 02/12/18 Range/Units 08:26 01:24 Calcium 9.4 9.8 (8.6-10.3) mg/dL Pituitary panel 02/11/18 02/12/18 Range/Units 08:26 01:24 Sodium 133 L 135 L (136-145) mEq/L Potassium 3.8 4.1 (3.5-5.1) mEq/L Chloride 97 L 97 L (98-107) mEq/L Carbon Dioxide 26 26 (23-29) mEq/L BUN 31 H 33 H (6-20) mg/dL Creatinine 1.44 H 1.31 H (0.70-1.30) mg/dL Glucose 264 H 260 H (70-105) mg/dL Calcium 9.4 9.8 (8.6-10.3) mg/dL Adrenal panel 02/11/18 02/12/18 Range/Units 08:26 01:24 Sodium 133 L 135 L (136-145) mEq/L Potassium 3.8 4.1 (3.5-5.1) mEq/L Chloride 97 L 97 L (98-107) mEq/L Carbon Dioxide 26 26 (23-29) mEq/L BUN 31 H 33 H (6-20) mg/dL Creatinine 1.44 H 1.31 H (0.70-1.30) mg/dL Glucose 264 H 260 H (70-105) mg/dL Calcium 9.4 9.8 (8.6-10.3) mg/dL Consult Discharge Plan - Plan Referrals: Nilam Del Cid CNP [Primary Care Provider] - 02/17/18 10:35 am Prescriptions: Apixaban [Eliquis] 5 mg PO DAILY #74 tablet
[2018-02-12] MEDS: Furosemide 40 MG/4 ML VIAL IVP SCH ×2 (08:54→16:41)
[2018-02-12] MEDS: Metoprolol XL (24 HR) Succ 50 MG TAB.ER.24H PO SCH (08:54)
[2018-02-12] MEDS: Multivit/Ca/Min/Fe/FA 1 TAB TABLET PO SCH (08:54)
[2018-02-12] MEDS: cefTRIAXone 2,000 MG in 0.9 % Sodium Chloride Mini Bag 100 ML IVPB SCH (08:55)
[2018-02-12] MEDS: Insulin LISPRO 300 UNITS/3 ML VIAL SQ SCH ×4 (08:56→20:37)
[2018-02-12] MEDS: Sennosides/Docusate Sodium TABLET PO SCH ×2 (11:50→20:36)
[2018-02-12] MEDS: Azithromycin 500 MG in D5% in Water 250 ML IVPB SCH (11:50)
[2018-02-12] MEDS: Apixaban 5 MG TABLET PO SCH ×2 (11:50→20:36)
--- NOTE | 2018-02-12 12:13 | Internal Med Progress Note ---
Hospitalist Progress Note - Encounter Date of Encounter: 02/12/18 Time of Encounter: 10:30 - Subjective Interval History: Patient has left chest wall pain from cough. Denies substernal chest pain. SOB is improving. Lower extremity improving. Has persisting cough. - Exam Vitals: Temp Pulse Resp BP Pulse Ox 97.6 F 71 18 163/83 91 02/12/18 11:37 02/12/18 11:37 02/12/18 11:37 02/12/18 11:37 02/12/18 11:37 Exam: General: Patient is alert, oriented, no acute distress, obese, speaks in full sentences Head: atraumatic, normocephalic, ENT: mucous membranes moist, normal external ear exam Neck: normal inspection, trachea midline, full ROM, no carotid bruits. No JVD Chest: normal inspection, symmetric chest rise Respiratory: Good respiratory effort. Decreased breath sounds secondary to body habitus, bilateral crackles are still course at basis. Cardiovascular: Regular rate and rhythm. s1 and s2 No clicks, rubs, gallops, or murmors. Skin: warm, dry, intact. - Assessment and Plan (1) Acute respiratory failure with hypoxia Current Visit: Yes Status: Acute Assessment and Plan: Acute respiratory failure with hypoxia most likely secondary to fluid overload/ pulmonary edema from recent urological procedure (hypotonic solutions) will rule out pulmonary embolism Doubt infectious process as he has no fever or white count or cough. Well score for PE 4.5 Troponin negative, BNP 63 D-dimer 685 ABG obtained shows high AA gradient hypoxemia, AA gradient is 75.4 expected for age is 18.8 Was started on heparin drip in the emergency department, will continue-pharmacy to dose CTPA ordered in the emergency department, patient unable to lay flat due to respiratory distress DVT studies of the lower extremities- showed + partial chronic DVT CTA: negative for PE, showed pneumonia, moderate right pleural effusion, small airspace consolidation possible. Lasix 40 mg IV given in the emergency department- will continue Lasix 40 mg IV BID- watch renal functions currently not in respiratory distress but BiPAP if he develops respiratory distress nasal cannula keep sats >92% Strict intake and output Fluid restriction - Continue Lasix, and Rocephin. Add azithromycin for atypical coverage. MRSA screen negative. - Continue IV lasix - Transition from Heparin to Eliquis, he is willing to pay for $45/month outpatient. - I.S., Mucinex. (2) Hyperlipidemia Current Visit: No Status: Chronic Assessment and Plan: By history as per chart review We will send lipid panel Nutrition consult (3) Uncontrolled diabetes mellitus Current Visit: Yes Status: Acute Assessment and Plan: A1c 13.4 on 01/29 Well continue home dose long-acting insulin with sliding scale coverage (4) Morbidly obese Current Visit: Yes Status: Acute Assessment and Plan: Nutrition consult Was counseled on weight loss and nutrition (5) Complicated urinary tract infection Current Visit: Yes Status: Acute Assessment and Plan: urgency, frequency, burning on urination I suspect that this is due to recent stent placement Will get UA Send urine culture if UA is positive Was discharged on Bactrim for 3 days on 02/08 - discontinue Continue Rocephin (6) Acute renal failure (ARF) Current Visit: Yes Status: Acute Assessment and Plan: Creatinine fluctuates from 1.4 to 1.5 on admission. 10 days ago it was 1.06 suspect that its secondary to recent urological procedure (02/07) Patient was started on Lasix for pulmonary edema Watch renal functions closely Strict intake and output Avoid nephrotoxic medicines (7) Hematuria Current Visit: Yes Status: Acute Assessment and Plan: Complicated situation as patient needs heparin drip right now until PE is ruled out. He also found to have a right lower extremity DVT. Will need to continue heparin drip for now and monitor CBC. If heparin could be discontinued, we will do so but the benefits of heparin outweigh the risks at this point. Hematuria improving. Will monitor as she is switched to Eliquis. (8) DVT (deep venous thrombosis) Current Visit: Yes Status: Chronic Assessment and Plan: Ultrasound of right lower extremity shows partially compressible gastrocnemius vein. This could be chronic DVT. Patient currently on heparin drip for acute respiratory failure that cannot excluse PE currently. Continue heparin drip for now. He has significant hematuria and at this point I am unsure what his anticoagulation status will be after further testing is done. Vascular Surgery consulted, evaluated patient. Okay to continue anticoagulation Eliquis today. - Time Spent with Patient Total time spent is greater than 50% in coordination of care (as documented) at patient's floor/unit and/or counseling patient: Internal Medicine: Result - Labs CBC & Chem 7: 02/12/18 01:24 02/12/18 01:24 Labs: Short CBC 02/12/18 Range/Units 01:24 WBC 13.4 H (4.3-11.1) K/mcL Hgb 12.5 L (12.9-16.9) g/dL Hct 36.8 L (37.5-50.1) % Plt Count 316 (140-400) K/mcL Neutrophils # 8.8 (1.6-8.9) K/mcL BMP 02/12/18 01:24 Sodium 135 L Potassium 4.1 Chloride 97 L Carbon Dioxide 26 BUN 33 H Creatinine 1.31 H Glucose 260 H Calcium 9.8 - ABG Interpretation ABG results: ABG ABG pH 7.41 pH Units (7.32-7.45) 02/09/18 07:43 ABG pCO2 41 mmHg (35-45) 02/09/18 07:43 ABG pO2 73 mmHg (85-104) L 02/09/18 07:43 ABG O2 Saturation 95 % (95-98) 02/09/18 07:43 PT/INR, D-dimer PT 12.5 Seconds (9.4-12.1) H 02/09/18 05:47 D-Dimer 685 ng/mLFEU (0-500) H 02/09/18 05:47 Consult Discharge Plan - Plan Referrals: Nilam Del Cid CNP [Primary Care Provider] - 02/17/18 10:35 am Prescriptions: Apixaban [Eliquis] 5 mg PO DAILY #74 tablet (2) Hyperlipidemia Qualifiers: Hyperlipidemia type: unspecified Qualified Code(s): E78.5 - Hyperlipidemia, unspecified (3) Uncontrolled diabetes mellitus Qualifiers: Diabetes mellitus type: type 2 Glycemic state: with hyperglycemia Qualified Code(s): E11.65 - Type 2 diabetes mellitus with hyperglycemia (6) Acute renal failure (ARF) Qualifiers: Acute renal failure type: unspecified Qualified Code(s): N17.9 - Acute kidney failure, unspecified (7) Hematuria Qualifiers: Hematuria type: gross Qualified Code(s): R31.0 - Gross hematuria (8) DVT (deep venous thrombosis) Qualifiers: DVT location: lower extremity Affected thrombotic vein of extremity: tibial Chronicity: chronic Laterality: right Qualified Code(s): 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
[2018-02-12] MEDS: Insulin DETEMIR 100 UNIT/ML X5UNITS SQ SCH (20:37)
[2018-02-13] MEDS: Metoprolol XL (24 HR) Succ 50 MG TAB.ER.24H PO SCH (08:05)
[2018-02-13] MEDS: Furosemide 40 MG/4 ML VIAL IVP SCH ×2 (08:05→17:55)
[2018-02-13] MEDS: cefTRIAXone 2,000 MG in 0.9 % Sodium Chloride Mini Bag 100 ML IVPB SCH (08:05)
[2018-02-13] MEDS: Apixaban 5 MG TABLET PO SCH ×2 (08:05→20:27)
[2018-02-13] MEDS: Insulin LISPRO 300 UNITS/3 ML VIAL SQ SCH ×4 (08:05→20:25)
[2018-02-13] MEDS: Sennosides/Docusate Sodium TABLET PO SCH ×2 (08:05→20:27)
[2018-02-13] MEDS: Multivit/Ca/Min/Fe/FA 1 TAB TABLET PO SCH (08:05)
[2018-02-13 11:41] LABS: Basophils % 0.4 %; Eosinophils # 0.4 K/mcL (0.0-0.6); Eosinophils % 3.8 %; Hematocrit 32.2 % (37.5-50.1); Hemoglobin 10.7 g/dL (12.9-16.9); Immature Granulocytes % 1.1 % (0-4); Immature Platelets 3.3 % (1.1-6.1); Lymphocytes # 2.3 K/mcL (0.6-4.6); Lymphocytes % 23.1 %; Mean Corpuscular HGB Conc 33.2 g/dL (31.6-35.5); Mean Corpuscular Hemoglobin 28.5 pg (28.0-33.3); Mean Corpuscular Volume 85.9 fL (83.0-100.0); Monocytes % 9.7 %; Neutrophils # 6.3 K/mcL (1.6-8.9); Platelet Count 254 K/mcL (140-400); Red Blood Count 3.75 M/mcL (4.19-5.50); Red Cell Distribution Width 11.9 % (11.5-14.5); Segmented Neutrophils % 61.9 %
[2018-02-13 11:48] LABS: BUN/Creatinine Ratio 23 (6-26); Blood Urea Nitrogen 25 mg/dL (6-20); Calcium 9.5 mg/dL (8.6-10.3); Carbon Dioxide 29 mEq/L (23-29); Chloride 97 mEq/L (98-107); Glucose 193 mg/dL (70-105); Osmolality,Calculated 290 (280-300); Potassium 3.6 mEq/L (3.5-5.1); Sodium 135 mEq/L (136-145); eGFR For Non-African Americans > 60 (> 60)
[2018-02-13] MEDS: Azithromycin 500 MG in D5% in Water 250 ML IVPB SCH (11:58)
[2018-02-13] MEDS ORDERED: Metoprolol XL (24 HR) Succ 50 MG TAB.ER.24H PO ONE (13:19)
[2018-02-13] MEDS ORDERED: CefTRIAXone 2,000 MG VIAL IVP ONE (13:19)
[2018-02-13] MEDS ORDERED: Multivit/Ca/Min/Fe/FA 1 TAB TABLET PO ONE (13:19)
[2018-02-13] MEDS ORDERED: Apixaban 5 MG TABLET PO ONE (13:19)
[2018-02-13] MEDS ORDERED: 0.9 % Sodium Chloride (Mini-Bag +) 100 ML IVBAG IVC ONE (13:19)
[2018-02-13] MEDS ORDERED: Sennosides/Docusate Sodium TABLET PO ONE (13:19)
[2018-02-13] MEDS ORDERED: Furosemide 40 MG/4 ML VIAL IV ONE (13:19)
--- NOTE | 2018-02-13 13:49 | Urology Progress Note ---
Date of Encounter: 02/13/18 Time of Encounter: 13:47 - Assessment and Plan (1) Hematuria Current Visit: Yes Status: Acute Assessment and plan: 57 year old man with gross hematuria after right PCNL. Urine color remains a dark tea. H&H has dropped a bit. He is now on oral anticoagulant. Urology will follow along. We will continue to monitor. No need for transfusion. Qualifiers: Hematuria type: gross Qualified Code(s): R31.0 - Gross hematuria Progress Note Narrative: Doing well today. Urine is still tea colored. No other issues. Objective Initial Vital Signs Temp Pulse Resp BP Pulse Ox 98.7 F 98 24 150/82 93 02/09/18 01:29 02/09/18 01:29 02/09/18 01:29 02/09/18 01:29 02/09/18 01:29 - General physical appearance Present: well developed, well nourished, no distress - Respiratory Present: normal respiratory effort - Abdomen Present: soft - Labs 02/13/18 05:02 02/13/18 05:02 Diabetes panel 02/13/18 Range/Units 05:02 Sodium 135 L (136-145) mEq/L Potassium 3.6 (3.5-5.1) mEq/L Chloride 97 L (98-107) mEq/L Carbon Dioxide 29 (23-29) mEq/L BUN 25 H (6-20) mg/dL Creatinine 1.11 (0.70-1.30) mg/dL Glucose 193 H (70-105) mg/dL Calcium 9.5 (8.6-10.3) mg/dL Calcium panel 02/13/18 Range/Units 05:02 Calcium 9.5 (8.6-10.3) mg/dL Pituitary panel 02/13/18 Range/Units 05:02 Sodium 135 L (136-145) mEq/L Potassium 3.6 (3.5-5.1) mEq/L Chloride 97 L (98-107) mEq/L Carbon Dioxide 29 (23-29) mEq/L BUN 25 H (6-20) mg/dL Creatinine 1.11 (0.70-1.30) mg/dL Glucose 193 H (70-105) mg/dL Calcium 9.5 (8.6-10.3) mg/dL Adrenal panel 02/13/18 Range/Units 05:02 Sodium 135 L (136-145) mEq/L Potassium 3.6 (3.5-5.1) mEq/L Chloride 97 L (98-107) mEq/L Carbon Dioxide 29 (23-29) mEq/L BUN 25 H (6-20) mg/dL Creatinine 1.11 (0.70-1.30) mg/dL Glucose 193 H (70-105) mg/dL Calcium 9.5 (8.6-10.3) mg/dL Consult Discharge Plan - Plan Referrals: Nilam Del Cid CNP [Primary Care Provider] - 02/17/18 10:35 am Prescriptions: Apixaban [Eliquis] 5 mg PO DAILY #74 tablet
--- NOTE | 2018-02-13 17:59 | Internal Med Progress Note ---
Hospitalist Progress Note - Encounter Date of Encounter: 02/13/18 Time of Encounter: 09:30 - Subjective Interval History: Patient seen in early AM. EMR software down and returned this afternoon. Patient in AM has no complaints no acute events. Hematuria still tea colored. - Exam Vitals: Temp Pulse Resp BP Pulse Ox 94.8 F L 73 16 128/78 95 02/13/18 17:06 02/13/18 17:06 02/13/18 17:06 02/13/18 17:06 02/13/18 17:06 Exam: General: Patient is alert, oriented, no acute distress, obese, speaks in full sentences Head: atraumatic, normocephalic, ENT: mucous membranes moist, normal external ear exam Neck: normal inspection, trachea midline, full ROM, no carotid bruits. No JVD Chest: normal inspection, symmetric chest rise Respiratory: Good respiratory effort. Decreased breath sounds secondary to body habitus, bilateral crackles are still course at basis. Cardiovascular: Regular rate and rhythm. s1 and s2 No clicks, rubs, gallops, or murmors. Skin: warm, dry, intact. - Assessment and Plan (1) Acute respiratory failure with hypoxia Current Visit: Yes Status: Acute Assessment and Plan: Acute respiratory failure with hypoxia most likely secondary to fluid overload/pulmonary edema from recent urological procedure (hypotonic solutions) will rule out pulmonary embolism Doubt infectious process as he has no fever or white count or cough. Well score for PE 4.5 Troponin negative, BNP 63 D-dimer 685 ABG obtained shows high AA gradient hypoxemia, AA gradient is 75.4 expected for age is 18.8 Was started on heparin drip in the emergency department, will continue-pharmacy to dose CTPA ordered in the emergency department, patient unable to lay flat due to respiratory distress DVT studies of the lower extremities- showed + partial chronic DVT CTA: negative for PE, showed pneumonia, moderate right pleural effusion, small airspace consolidation possible. Lasix 40 mg IV given in the emergency department- will continue Lasix 40 mg IV BID- watch renal functions currently not in respiratory distress but BiPAP if he develops respiratory distress nasal cannula keep sats >92% Strict intake and output Fluid restriction - Continue Lasix, and Rocephin. Add azithromycin for atypical coverage. MRSA screen negative. - Continue IV lasix - Transition from Heparin to Eliquis, he is willing to pay for $45/month outpatient. - I.S., Mucinex. (2) Hyperlipidemia Current Visit: No Status: Chronic Assessment and Plan: By history as per chart review We will send lipid panel Nutrition consult (3) Uncontrolled diabetes mellitus Current Visit: Yes Status: Acute Assessment and Plan: A1c 13.4 on 01/29 Well continue home dose long-acting insulin with sliding scale coverage (4) Morbidly obese Current Visit: Yes Status: Acute Assessment and Plan: Nutrition consult Was counseled on weight loss and nutrition (5) Complicated urinary tract infection Current Visit: Yes Status: Acute Assessment and Plan: urgency, frequency, burning on urination I suspect that this is due to recent stent placement Will get UA Send urine culture if UA is positive Was discharged on Bactrim for 3 days on 02/08 - discontinue Continue Rocephin (6) Acute renal failure (ARF) Current Visit: Yes Status: Acute Assessment and Plan: Creatinine fluctuates from 1.4 to 1.5 on admission. 10 days ago it was 1.06 suspect that its secondary to recent urological procedure (02/07) Patient was started on Lasix for pulmonary edema Watch renal functions closely Strict intake and output Avoid nephrotoxic medicines (7) Hematuria Current Visit: Yes Status: Acute Assessment and Plan: Complicated situation as patient needs heparin drip right now until PE is ruled out. He also found to have a right lower extremity DVT. Will need to continue heparin drip for now and monitor CBC. If heparin could be discontinued, we will do so but the benefits of heparin outweigh the risks at this point. Hematuria still tea colored. On Eliquis for newly found DVT. Hemoglobin showed drop will need to follow-up H&H. (8) DVT (deep venous thrombosis) Current Visit: Yes Status: Chronic Assessment and Plan: Ultrasound of right lower extremity shows partially compressible gastrocnemius vein. This could be chronic DVT. Patient currently on heparin drip for acute respiratory failure that cannot excluse PE currently. Continue heparin drip for now. He has significant hematuria and at this point I am unsure what his anti coagulation status will be after further testing is done. Vascular Surgery consulted, evaluated patient. Okay to continue anticoagulation On Eliquis - Time Spent with Patient Total time spent is greater than 50% in coordination of care (as documented) at patient's floor/unit and/or counseling patient: Internal Medicine: Result - Labs CBC & Chem 7: 02/13/18 05:02 02/13/18 05:02 Labs: Short CBC 02/13/18 Range/Units 05:02 WBC 10.1 (4.3-11.1) K/mcL Hgb 10.7 L D (12.9-16.9) g/dL Hct 32.2 L (37.5-50.1) % Plt Count 254 (140-400) K/mcL Neutrophils # 6.3 (1.6-8.9) K/mcL BMP 02/13/18 05:02 Sodium 135 L Potassium 3.6 Chloride 97 L Carbon Dioxide 29 BUN 25 H Creatinine 1.11 Glucose 193 H Calcium 9.5 - ABG Interpretation ABG results: ABG ABG pH 7.41 pH Units (7.32-7.45) 02/09/18 07:43 ABG pCO2 41 mmHg (35-45) 02/09/18 07:43 ABG pO2 73 mmHg (85-104) L 02/09/18 07:43 ABG O2 Saturation 95 % (95-98) 02/09/18 07:43 PT/INR, D-dimer PT 12.5 Seconds (9.4-12.1) H 02/09/18 05:47 D-Dimer 685 ng/mLFEU (0-500) H 02/09/18 05:47 Consult Discharge Plan - Plan Referrals: Nilam Del Cid CNP [Primary Care Provider] - 02/17/18 10:35 am Prescriptions: Apixaban [Eliquis] 5 mg PO DAILY #74 tablet (2) Hyperlipidemia Qualifiers: Hyperlipidemia type: unspecified Qualified Code(s): E78.5 - Hyperlipidemia, unspecified (3) Uncontrolled diabetes mellitus Qualifiers: Diabetes mellitus type: type 2 Glycemic state: with hyperglycemia Qualified Code(s): E11.65 - Type 2 diabetes mellitus with hyperglycemia (6) Acute renal failure (ARF) Qualifiers: Acute renal failure type: unspecified Qualified Code(s): N17.9 - Acute kidney failure, unspecified (7) Hematuria Qualifiers: Hematuria type: gross Qualified Code(s): R31.0 - Gross hematuria (8) DVT (deep venous thrombosis) Qualifiers: DVT location: lower extremity Affected thrombotic vein of extremity: tibial Chronicity: chronic Laterality: right Qualified Code(s): 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
[2018-02-13] MEDS: Insulin DETEMIR 100 UNIT/ML X5UNITS SQ SCH (20:25)
[2018-02-14 04:16] LABS: Basophils # 0.1 K/mcL (0.0-0.2); Basophils % 0.4 %; Eosinophils # 0.5 K/mcL (0.0-0.6); Eosinophils % 4.4 %; Hematocrit 33.5 % (37.5-50.1); Hemoglobin 11.1 g/dL (12.9-16.9); Immature Granulocytes % 0.6 % (0-4); Lymphocytes # 3.1 K/mcL (0.6-4.6); Lymphocytes % 26.2 %; Mean Corpuscular HGB Conc 33.1 g/dL (31.6-35.5); Mean Corpuscular Hemoglobin 28.3 pg (28.0-33.3); Mean Corpuscular Volume 85.5 fL (83.0-100.0); Mean Platelet Volume 9.8 fL (9.4-12.4); Monocytes # 1.1 K/mcL (0.0-1.3); Monocytes % 9.2 %; Platelet Count 297 K/mcL (140-400); Red Blood Count 3.92 M/mcL (4.19-5.50); Red Cell Distribution Width 11.9 % (11.5-14.5); Segmented Neutrophils % 59.2 %
[2018-02-14 04:32] LABS: BUN/Creatinine Ratio 27 (6-26); Blood Urea Nitrogen 26 mg/dL (6-20); Calcium 9.2 mg/dL (8.6-10.3); Carbon Dioxide 31 mEq/L (23-29); Chloride 96 mEq/L (98-107); Glucose 172 mg/dL (70-105); Osmolality,Calculated 289 (280-300); Potassium 3.4 mEq/L (3.5-5.1); Sodium 135 mEq/L (136-145); eGFR For Non-African Americans > 60 (> 60)
[2018-02-14] MEDS: Apixaban 5 MG TABLET PO SCH (08:04)
[2018-02-14] MEDS: Multivit/Ca/Min/Fe/FA 1 TAB TABLET PO SCH (08:04)
[2018-02-14] MEDS: Sennosides/Docusate Sodium TABLET PO SCH (08:04)
[2018-02-14] MEDS: Insulin LISPRO 300 UNITS/3 ML VIAL SQ SCH (08:05)
[2018-02-14] MEDS: Furosemide 40 MG/4 ML VIAL IVP SCH (08:05)
[2018-02-14] MEDS: cefTRIAXone 2,000 MG in 0.9 % Sodium Chloride Mini Bag 100 ML IVPB SCH (08:05)
[2018-02-14] MEDS: Metoprolol XL (24 HR) Succ 50 MG TAB.ER.24H PO SCH (08:05)
[2018-02-14] MEDS ORDERED: levoFLOXacin 750 MG TABLET PO SCH (10:30)
--- NOTE | 2018-02-14 10:36 | Discharge Summary ---
- NOTES TO OUTPATIENT PROVIDER Notes to Outpatient Provider: follow up with PCP- will need OP sleep study. follow up CXR in 2 weeks - has pleural effusion/CAP. follow up electrolytes and renal functions along with CBC for H/H as he is on AC and has hematuria. follow with urology for hematuria post OP. follow blood glucose logs and adjust insulin. A1C 13 on admission Orders not resulted at time of discharge: Pending orders 02/14/18 10:24 CXR, portable [XR chest 1V portable] [XR] Stat 02/15/18 04:00 BMP [Basic Metabolic Panel] AM 0400 Complete Blood Count [HEME] AM 0400 02/16/18 04:00 BMP [Basic Metabolic Panel] AM 0400 Complete Blood Count [HEME] AM 0400 Date of Encounter: 02/14/18 Time of Encounter: 09:00 - Discharge Diagnosis (1) Acute respiratory failure with hypoxia Priority: Primary Status: Acute (2) Hyperlipidemia Priority: Secondary Status: Chronic Qualifiers: Hyperlipidemia type: unspecified Qualified Code(s): E78.5 - Hyperlipidemia, unspecified (3) Uncontrolled diabetes mellitus Priority: Secondary Status: Acute Qualifiers: Diabetes mellitus type: type 2 Glycemic state: with hyperglycemia Qualified Code(s): E11.65 - Type 2 diabetes mellitus with hyperglycemia (4) Morbidly obese Priority: Secondary Status: Acute (5) Complicated urinary tract infection Priority: Secondary Status: Acute (6) Acute renal failure (ARF) Priority: Secondary Status: Acute Qualifiers: Acute renal failure type: unspecified Qualified Code(s): N17.9 - Acute kidney failure, unspecified (7) Hematuria Priority: Secondary Status: Acute Qualifiers: Hematuria type: gross Qualified Code(s): R31.0 - Gross hematuria (8) DVT (deep venous thrombosis) Priority: Secondary Status: Chronic Qualifiers: DVT location: lower extremity Affected thrombotic vein of extremity: tibial Chronicity: chronic Laterality: right Qualified Code(s): 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 Cavanaugh is a 57 year old male with history of diabetes, and hypertension and recent Right percutaneous nephrolithotomy on 02/07 resented to the emergency department with shortness of breath. As per patient he was discharged on 02/08 after having urological procedure and went home. While at home he sat in his chair and living room and watch TV and had mild dyspnea however he thought that it was normal postprocedure. At about midnight his dyspnea worsened to the point that he felt that he was suffocating so he decided to come to the emergency department for further evaluation. He reports PND, orthopnea and was unable to sleep secondary to shortness of breath. Currently he is unable to lay flat and has to sit up to help with his dyspnea. Ambulation worsens his dyspnea and sitting up alleviates the dyspnea. At baseline he is able to walk at least 1 block without having to stop for shortness of breath. He denies history of COPD or heart disease in the past. His shortness of breath is not associated with palpitations or chest pain. He has never had symptoms like this before. He denies fever chills cough, sputum production. He does report that he has not ambulated as much as he would like in the past week, denies history of blood clots, denies leg swelling or calf tenderness. While in the ED chest x-ray was performed Bilateral pulmonary opacities suspicious for pneumonia or edema and Mild cardiomegaly. CTPA was ordered however patient was unable to lay flat for the procedure. He was given Lasix 40 mg IV and was endorsed for admission for further management of dyspnea. Well score for PE 4.5 Troponin negative, BNP 63 D-dimer 685 ABG obtained shows high AA gradient hypoxemia, AA gradient is 75.4 expected for age is 18.8 DVT of the bilateral lower extremity performed and it was positive DVT. he was continued on heparin drip. hematuria worsened. urology consulte navarro grissom followed. he was treated with IV lasix for pulmonary edema with improvement. he was transitioned to PO lasix. he was treated for CAP in addition to pulmonary edema and transitioned to PO Abx to complete course. with improvement of respiratory status CTPA performed and was negative for PE ( full report below). he was also complaining of urgency, frequency, burning on urination, I suspect that this is due to recent stent placement he was treated with IV ABx- UA with large blood and small LE and 0-3 WBC CXR repeated on 02/14/18- improved aeration of the lungs bilaterally with persistent pleuroparenchymal changes at the lung bases, right greater than left. No new lines or tubes are noted. A1c was 13 on admission. he was counseled on improtance of compliance to medication for PCP to follow up with A1c and adjust insulin as he was discharged on sliding scale along with long acting insulin. Diabetic teaching provided by pharmacy and nursing staff. Transitioned from Heparin to Eliquis, he is willing to pay for $45/month outpatient. urology cleared the patient for discharge, H/H followed through out admission and was stable. urine color remained stable and improved. he is to follow with urology and PCP closely. he was saturating well on RA, 6 minute walk test performed by nursing staff and he did not qualify for home oxygen at this time. 02/14 was my first encounter with patient since admission on 02/09. CTPA: IMPRESSION: 1. No evidence of pulmonary embolism. 2. Moderate right pleural effusion with compressive atelectasis. A small amount of superimposed airspace consolidation cannot be excluded. 3. No pneumothorax. 4. Coronary atherosclerosis. TTE: Impressions: LVEF 60%. Not all LV wall segments were well visualized. Indeterminate diastolic function. Normal right ventricular structure and function. No significant valvular dysfunction. CXR 02/14- Study limited by overlying support and monitoring apparatus. Heart size is and mediastinal contours are stable. There is improved aeration of the lungs bilaterally with persistent pleuroparenchymal changes at the lung bases, right greater than left. No new lines or tubes are noted. Discharge discussed with: patient, family, nurse, social work, engagement quality consultant - Time Spent with Patient Total time spent providing and/or coordinating discharge services: Greater than 30 minutes (40) - Discharge Medications Prescriptions: Alcohol Antiseptic Pads [Alcohol Pads] 1 each TP QID #100 med..pad Apixaban [Eliquis] 5 mg PO DAILY #74 tablet Aspirin 81 mg PO DAILY #30 tab.chew Furosemide [Lasix] 40 mg PO DAILY #30 tab Insulin LISPRO [Humalog Kwikpen U-100] 0 unit SQ AD #15 mls Lancets/Blood Glucose Strips [Fora [id number] Str-Lnct] 1 each QID #1 combo..pkg levoFLOXacin [Levaquin] 750 mg PO DAILY #3 tablet Pen Needle, Diabetic [Pen Needle] 1 each QID #100 dis.needle Home Medications: Insulin Glargine,Hum.rec.anlog [Basaglar Kwikpen U-100] 34 unit SQ HS 10/28/17 [History] Multivitamin [One Daily Multivitamin] 1 tab PO DAILY 10/28/17 [History] Metoprolol Succinate [Toprol Xl] 50 mg PO DAILY 02/07/18 [History] Ipratropium/Albuterol Neb [Duoneb] 3 ml IH Q6HR PRN 02/10/18 [History] Apixaban [Eliquis] 5 mg PO DAILY #74 tablet 02/11/18 [Rx] Alcohol Antiseptic Pads [Alcohol Pads] 1 each TP QID #100 med..pad 02/14/18 [Rx] Aspirin 81 mg PO DAILY #30 tab.chew 02/14/18 [Rx] Furosemide [Lasix] 40 mg PO DAILY #30 tab 02/14/18 [Rx] Insulin LISPRO [Humalog Kwikpen U-100] 0 unit SQ AD #15 mls 02/14/18 [Rx] Lancets/Blood Glucose Strips [Fora [id number] Strp-Lnct] 1 each QID #1 combo..pkg 02/14/18 [Rx] Pen Needle, Diabetic [Pen Needle] 1 each MC QID #100 dis.needle 02/14/18 [Rx] levoFLOXacin [Levaquin] 750 mg PO DAILY #3 tablet 02/14/18 [Rx] Allergies/Adverse Reactions: Allergy/AdvReac Type Severity Reaction Status Date / Time No Known Allergies Allergy Verified 02/09/18 01:48 Date of admission: 02/10/18 14:56 Primary care physician: Nilam Del Cid CNP Consults: 02/09/18 08:02 Consult to Nutrition [CONS] Routine Comment: Consulting Provider: NUTRITION Reason for Dietary Consult: PO Supplementation 02/09/18 16:53 Consult to Urology [CONS] Stat Consulting Provider: U[facility] [place] Reason for Consult: hematuria on heparin drip for DVT had recent Right percutaneous nephrolithotomy Right antegrade nephrostogram.Right nephrostomy tube placement performed on 02/07 Call Completed: Yes 02/10/18 11:59 Consult to Vascular Surgery [CONS] Routine Consulting Provider: Vascular Surgery [place] Reason for Consult: DVT with bleed. Possibly IVC filter candidate Call Completed: Yes - Constitutional Vitals: Temp Pulse Resp BP Pulse Ox 98.6 F 77 18 128/74 91 02/14/18 07:34 02/14/18 07:34 02/14/18 07:34 02/14/18 07:34 02/14/18 08:13 Exam: General: Patient is alert, oriented, no acute distress, obese, speaks in full sentences Head: atraumatic, normocephalic, Eye: normal appearance, PERRL, no scleral icterus, no conjunctival injection ENT: mucous membranes moist, normal external ear exam Neck: normal inspection, trachea midline, full ROM, no carotid bruits. Enlarged neck Chest: normal inspection, symmetric chest rise Respiratory: Good respiratory effort. Decreased breath sounds secondary to body habitus, bilateral crackles infrascapularly without wheezing - improved Cardiovascular: Regular rate and rhythm. s1 and s2 No clicks, rubs, gallops, or murmors. Abdomen: Bowel sounds present normoactive x-4 quadrants. Abdomen is soft, nondistended. no Epigastric tenderness. No guarding or rebound. No organomegaly noted, obese musculoskeletal: Spontaneously moving all extremities. Trace edema up to mid calf, no calf tenderness ( improved ) Skin: warm, dry, intact. Neuro: Alert and oriented x4. Sensation light touch intact. Cranial nerves 2- 12 is intact. Not aphasic, no focal deficits Psych: Patient's affect is normal - Patient Status Disposition: Home, Self-Care Condition: Fair Functional capacity at discharge: independent ambulation Overall status at discharge: patient is progressing back to baseline - Discharge Instructions Instructions: Furosemide (By mouth), Levofloxacin (By mouth), Insulin Lispro (Injection), Heart Failure (DC), Asthma (DC), Acute Respiratory Distress Syndrome (DC), Acute Kidney Injury (DC), Urinary Tract Infection in Men (DC), Diabetes Mellitus Type 2 in Adults (DC), Chronic Hypertension (DC) Follow Up With: Nilam Del Cid CNP [Primary Care Provider] - 02/17/18 10:35 am Todd Colón MD [Partnered Physician] - (appt has been requested) - Diet and Activity Activity: increase activity as tolerated Diet: diabetic diet, low salt diet
[2018-02-14 11:59] VITALS: BP 136/84
[2018-02-14] MEDS ORDERED: Azithromycin 250 MG TABLET PO SCH (12:00)
[2018-02-15] MEDS ORDERED: Furosemide 40 MG/4 ML VIAL IVP SCH (09:00)
[2018-02-19] MEDS ORDERED: Apixaban 5 MG TABLET PO SCH (09:00)
== END 2018-02-14 13:20 | disposition home or self-care (01) | DRG 189 ==
LOC: 2NENU 01:24 → EMEROOARM 01:24 → SUATTDRO 05:53 → 2NENU 07:09
PROVIDERS: ADMIT Internal Medicine; ATTEND Student in an Organized Health Care Education/Training Program